=== PATIENT | male | born 1995 | race Caucasian/White ===

== ENCOUNTER 2016-12-26 16:52 | Emergency (ER) | payer SELFPAY ==
[2016-12-26 18:07] LABS: Hematocrit 47 % (42-52); Hemoglobin 15.5 g/dl (14.0-18.0); Mean Corpuscular HGB Conc 33 g/dl (31-36); Mean Corpuscular Hemoglobin 30 pg (27-31); Mean Corpuscular Volume 90 fL (80-94); Mean Platelet Volume 8 um3 (7.4-10.4); Red Blood Count 5.23 10^6/ul (4.0-5.4); Red Cell Distribution Width 14 % (10.5-15); White Blood Count 11.7 10^3/ul (3.5-10.8)
[2016-12-26 18:24] LABS: Urine Bacteria Absent (Absent); Urine Bilirubin Negative (Negative); Urine Glucose Negative (Negative); Urine Nitrite Negative (Negative)
[2016-12-26 18:26] LABS: ALT 17 U/L (7-52); AST 23 U/L (13-39); Albumin 4.3 g/dL (3.2-5.2); Alkaline Phosphatase 81 U/L (34-104); Blood Urea Nitrogen 13 mg/dL (6-24); CO2 Carbon Dioxide 25 mmol/L (22-32); EGFR African American 121.3 (>60); EGFR Non-African American 94.3 (>60); Globulin 2.8 g/dL (2-4); Glucose 85 mg/dL (70-100); Magnesium 2.6 mg/dL (1.9-2.7); Total Protein 7.1 g/dL (6.4-8.9)
[2016-12-26 18:38] LABS: Alcohol < 10 mg/dL (<10)
[2016-12-26 18:42] LABS: Benzodiazepine Urine Screen None Detected (None Detect)
[2016-12-26 19:05] VITALS: BP 119/67
[2016-12-26 22:21] LABS: Anion Gap 7 mmol/L (2-11); Chloride 105 mmol/L (101-111); Potassium 4.7 mmol/L (3.5-5.0); Sodium 137 mmol/L (133-145)
--- NOTE | 2016-12-27 13:34 | ED ---
IDereck Soohyun, scribed for Baudilio Rawls MD on 12/26/16 at 1747 . Neurological HPI - HPI Summary HPI Summary: This 21 y/o male presents to ED for reported three episodes of seizure today. Pt presents to ED alone without any family member, but reports that he has been informed by his family that he has had three seizures. PMHx does include known seizure. He also admits to having been noncompliant with his medication and has not taken his med since a month ago. Pt cannot recall what medication he is supposed to take. Seizure typically occurs once a month. Pt is from [place], [place]. Pt reports that his primary care involves Dr Reji Hope. - History of Current Complaint Chief Complaint: EDSeizure Stated Complaint: SEIZURES Time Seen by Provider: 12/26/16 17:33 Hx Obtained From: Patient Onset/Duration: Sudden Onset Timing: Intermittent Episodes Lasting: Pain Intensity: 8 Pain Scale Used: 0-10 Numeric Frequency: Episodes x___ - 3 Aggravating: Nothing Alleviating: Spontanious Resolution Associated Signs and Symptoms: Positive: Negative - Allergy/Home Medications Allergies/Adverse Reactions: Allergies Allergy/AdvReac Type Severity Reaction Status Date / Time Penicillins [PCN] Allergy Rash Verified 12/26/16 17:31 Home Medications: Home Medications carBAMazepine TAB(*) [Tegretol TAB(*)] 600 mg PO BID 12/26/16 [History Confirmed 12/26/16] PMH/Surg Hx/FS Hx/Imm Hx Neurological History: Reports: Hx Seizures Infectious Disease History: No Infectious Disease History: Denies: Traveled Outside the US in Last 30 Days - Family History Known Family History: Negative: Hypertension - Social History Lives: With Family Alcohol Use: Rare Hx Substance Use: No Substance Use Type: Reports: None Hx Tobacco Use: Yes Smoking Status (MU): Light Every Day Tobacco Smoker Review of Systems Negative: Fever Neurological: Other - 3x seizure All Other Systems Reviewed And Are Negative: Yes Physical Exam Triage Information Reviewed: Yes Vital Signs On Initial Exam: Initial Vitals Temp Pulse Resp BP Pulse Ox 99.4 F 101 22 121/88 98 12/26/16 17:07 12/26/16 17:07 12/26/16 17:07 12/26/16 17:07 12/26/16 17:07 Vital Signs Reviewed: Yes Appearance: Positive: Well-Appearing, No Pain Distress Skin: Positive: Warm, Skin Color Reflects Adequate Perfusion Head/Face: Positive: Normal Head/Face Inspection Eyes: Positive: Normal ENT: Positive: Normal ENT inspection Neck: Positive: Supple, Nontender Cardiovascular: Positive: RRR, Pulses are Symmetrical in both Upper and Lower Extremities Musculoskeletal: Positive: Normal Neurological: Positive: Normal Psychiatric: Positive: Affect/Mood Appropriate AVPU Assessment: Alert - [place] Coma Scale Coma Scale Total: 15 Diagnostics - Vital Signs Vital Signs Temp Pulse Resp BP Pulse Ox 12/26/16 17:32 88 97 12/26/16 17:30 102/52 12/26/16 17:29 99.4 F 93 15 102/52 97 12/26/16 17:07 99.4 F 101 22 121/88 98 - Laboratory Lab Results: Lab Results 12/26/16 12/26/16 12/26/16 Range/Units 17:50 17:50 17:50 WBC 11.7 H (3.5-10.8) 10^3/ul RBC 5.23 (4.0-5.4) 10^6/ul Hgb 15.5 (14.0-18.0) g/dl Hct 47 (42-52) % MCV 90 (80-94) fL MCH 30 (27-31) pg MCHC 33 (31-36) g/dl RDW 14 (10.5-15) % Plt Count 185 (150-450) 10^3/ul MPV 8 (7.4-10.4) um3 Neut % (Auto) 79.7 (38-83) % Lymph % (Auto) 9.9 L (25-47) % [place] % (Auto) 9.3 H (1-9) % Eos % (Auto) 0 (0-6) % Baso % (Auto) 1.1 (0-2) % Absolute Neuts (auto) 9.3 H (1.5-7.7) 10^3/ul Absolute Lymphs (auto) 1.2 (1.0-4.8) 10^3/ul Absolute Monos (auto) 1.1 H (0-0.8) 10^3/ul Absolute Eos (auto) 0 (0-0.6) 10^3/ul Absolute Basos (auto) 0.1 (0-0.2) 10^3/ul Absolute Nucleated RBC 0.01 10^3/ul Nucleated RBC % 0.1 INR (Anticoag Therapy) 0.90 (0.89-1.11) Sodium 137 (133-145) mmol/L Potassium 4.7 (3.5-5.0) mmol/L Chloride 105 (101-111) mmol/L Carbon Dioxide 25 (22-32) mmol/L Anion Gap 7 (2-11) mmol/L BUN 13 (6-24) mg/dL Creatinine 1.00 (0.67-1.17) mg/dL Est GFR ( Amer) 121.3 (>60) Est GFR (Non-Af Amer) 94.3 (>60) BUN/Creatinine Ratio 13.0 (8-20) Glucose 85 (70-100) mg/dL Lactic Acid (0.5-2.0) mmol/L Calcium 9.0 (8.6-10.3) mg/dL Magnesium 2.6 (1.9-2.7) mg/dL Total Bilirubin 0.50 (0.2-1.0) mg/dL AST 23 (13-39) U/L ALT 17 (7-52) U/L Alkaline Phosphatase 81 (34-104) U/L Total Protein 7.1 (6.4-8.9) g/dL Albumin 4.3 (3.2-5.2) g/dL Globulin 2.8 (2-4) g/dL Albumin/Globulin Ratio 1.5 (1-3) Urine Color Urine Appearance Urine pH (5-9) Ur Specific [place] (1.010-1.030) Urine Protein (Negative) Urine Ketones (Negative) Urine Blood (Negative) Urine Nitrate (Negative) Urine Bilirubin (Negative) Urine Urobilinogen (Negative) Ur Leukocyte Esterase (Negative) Urine WBC (Auto) (Absent) Urine RBC (Auto) (Absent) Uric Acid Crystals (Absent) Urine Bacteria (Absent) Urine Glucose (Negative) Urine Ascorbic Acid (Negative) Urine Opiates Screen (None Detect) Ur Barbiturates Screen (None Detect) Ur Phencyclidine Scrn (None Detect) Ur Amphetamines Screen (None Detect) U Benzodiazepines Scrn (None Detect) Urine Cocaine Screen (None Detect) U Cannabinoids Screen (None Detect) Serum Alcohol < 10 (<10) mg/dL 12/26/16 12/26/16 12/26/16 Range/Units 17:50 18:02 18:02 WBC (3.5-10.8) 10^3/ul RBC (4.0-5.4) 10^6/ul Hgb (14.0-18.0) g/dl Hct (42-52) % MCV (80-94) fL MCH (27-31) pg MCHC (31-36) g/dl RDW (10.5-15) % Plt Count (150-450) 10^3/ul MPV (7.4-10.4) um3 Neut % (Auto) (38-83) % Lymph % (Auto) (25-47) % [place] % (Auto) (1-9) % Eos % (Auto) (0-6) % Baso % (Auto) (0-2) % Absolute Neuts (auto) (1.5-7.7) 10^3/ul Absolute Lymphs (auto) (1.0-4.8) 10^3/ul Absolute Monos (auto) (0-0.8) 10^3/ul Absolute Eos (auto) (0-0.6) 10^3/ul Absolute Basos (auto) (0-0.2) 10^3/ul Absolute Nucleated RBC 10^3/ul Nucleated RBC % INR (Anticoag Therapy) (0.89-1.11) Sodium (133-145) mmol/L Potassium (3.5-5.0) mmol/L Chloride (101-111) mmol/L Carbon Dioxide (22-32) mmol/L Anion Gap (2-11) mmol/L BUN (6-24) mg/dL Creatinine (0.67-1.17) mg/dL Est GFR ( Amer) (>60) Est GFR (Non-Af Amer) (>60) BUN/Creatinine Ratio (8-20) Glucose (70-100) mg/dL Lactic Acid 2.1 H* (0.5-2.0) mmol/L Calcium (8.6-10.3) mg/dL Magnesium (1.9-2.7) mg/dL Total Bilirubin (0.2-1.0) mg/dL AST (13-39) U/L ALT (7-52) U/L Alkaline Phosphatase (34-104) U/L Total Protein (6.4-8.9) g/dL Albumin (3.2-5.2) g/dL Globulin (2-4) g/dL Albumin/Globulin Ratio (1-3) Urine Color Yellow Urine Appearance Cloudy Urine pH 5.0 (5-9) Ur Specific [place] 1.012 (1.010-1.030) Urine Protein Negative (Negative) Urine Ketones Negative (Negative) Urine Blood 1+ H (Negative) Urine Nitrate Negative (Negative) Urine Bilirubin Negative (Negative) Urine Urobilinogen Negative (Negative) Ur Leukocyte Esterase Negative (Negative) Urine WBC (Auto) Trace(0-5/hpf) (Absent) Urine RBC (Auto) Absent (Absent) Uric Acid Crystals Present H (Absent) Urine Bacteria Absent (Absent) Urine Glucose Negative (Negative) Urine Ascorbic Acid * H (Negative) Urine Opiates Screen None detected (None Detect) Ur Barbiturates Screen None detected (None Detect) Ur Phencyclidine Scrn None detected (None Detect) Ur Amphetamines Screen None detected (None Detect) U Benzodiazepines Scrn None detected (None Detect) Urine Cocaine Screen None detected (None Detect) U Cannabinoids Screen Presumptive positive H (None Detect) Serum Alcohol (<10) mg/dL Result Diagrams: 12/26/16 17:50 12/26/16 17:50 Lab Statement: Any lab studies that have been ordered have been reviewed, and results considered in the medical decision making process. Course/Dx - Course Course Of Treatment: Mr. Reyes reported several seizures today and admitted to being noncompliant with his medications. He was not post ictal when I saw him. He got tired of waiting for his lab results and walked out. - Diagnoses Provider Diagnoses: Seizure disorder Discharge - Discharge Plan Condition: Stable Disposition: HOME Referrals: Non Staff,Doctor [Primary Care Provider] - The documentation as recorded by the Dereck ramos Soohyun accurately reflects the service I personally performed and the decisions made by me, Baudilio Rawls MD.
== END 2016-12-26 20:43 | disposition home or self-care (01) ==
LOC: ED 16:52
DX: R56.9 Unspecified convulsions (principal); F17.210 Nicotine dependence, cigarettes, uncomplicated
CPT/HCPCS: 36415; 80053; 80307; 80320; 81003; 81015; 83605; 83735; 85025; 85610; 99282; G0480

== ENCOUNTER 2017-04-17 03:37 | Emergency (ER) | payer SELFPAY ==
[2017-04-17] MEDS ORDERED: Acetaminophen TAB* 325 MG PO ONE (04:39)
--- NOTE | 2017-04-17 04:41 | ED ---
Phani Santos Thomas, scribed for Jorge Boyce MD on 04/17/17 at 0433 . Throat Pain/Nasal Congestion - HPI Summary HPI Summary: The pt is a 21 y/o M presenting to the ED c/o swollen tongue s/p a seizure that occurred yesterday. The patient is not on any medication for his seizures. The seizure occurred when he came home from work. - History of Current Complaint Chief Complaint: EDGeneral Time Seen by Provider: 04/17/17 04:06 Hx Obtained From: Patient Onset/Duration: Lasting Days - 1, Still Present Severity: Moderate Associated Signs And Symptoms: Positive: Negative Cough: None Related History: Other (Noted In Comments) - Hx of seizures with a seizure yesterday - Allergies/Home Medications Allergies/Adverse Reactions: Allergies Allergy/AdvReac Type Severity Reaction Status Date / Time Penicillins [PCN] Allergy Rash Verified 12/26/16 17:31 PMH/Surg Hx/FS Hx/Imm Hx Previously Healthy: No Sensory History: Denies: Hx Legally Blind Neurological History: Reports: Hx Seizures Infectious Disease History: No Infectious Disease History: Denies: Traveled Outside the US in Last 30 Days - Family History Known Family History: Negative: Hypertension - Social History Alcohol Use: Rare Hx Substance Use: No Substance Use Type: Reports: None Hx Tobacco Use: Yes Smoking Status (MU): Light Every Day Tobacco Smoker Review of Systems Negative: Fever Positive: Other - Swollen tongue Neurological: Other - Seizure yesterday All Other Systems Reviewed And Are Negative: Yes Physical Exam - Summary Physical Exam Summary: VITAL SIGNS: Reviewed. GENERAL: Patient is a well-developed and nourished male who is lying comfortable in the stretcher. Patient is not in any acute respiratory distress. HEAD AND FACE: No signs of trauma. No ecchymosis, hematomas or skull depressions. No sinus tenderness. EYES: PERRLA, EOMI x 2, No injected conjunctiva, no nystagmus. EARS: Hearing grossly intact. Ear canals and tympanic membranes are within normal limits. MOUTH: Oropharynx within normal limits. There is a mild abrasion to the tongue margin. NECK: Supple, trachea is midline, no adenopathy, no JVD, no carotid bruit, no c- spine tenderness, neck with full ROM. CHEST: Symmetric, no tenderness at palpation LUNGS: Clear to auscultation bilaterally. No wheezing or crackles. CVS: Regular rate and rhythm, S1 and S2 present, no murmurs or gallops appreciated. ABDOMEN: Soft, non-tender. No signs of distention. No rebound no guarding, and no masses palpated. Bowel sounds are normal. EXTREMITIES: FROM in all major joints, no edema, no cyanosis or clubbing. NEURO: Alert and oriented x 3. No acute neurological deficits. Speech is normal and follows commands. SKIN: Dry and warm Triage Information Reviewed: Yes Vital Signs On Initial Exam: Initial Vitals Temp Pulse Resp BP Pulse Ox 98.3 F 107 16 144/88 98 04/17/17 03:47 04/17/17 03:47 04/17/17 03:47 04/17/17 03:47 04/17/17 03:47 Vital Signs Reviewed: Yes Diagnostics - Vital Signs Vital Signs Temp Pulse Resp BP Pulse Ox 04/17/17 03:49 110 96 04/17/17 03:48 144/88 04/17/17 03:47 98.3 F 107 16 144/88 98 - Laboratory Lab Statement: Any lab studies that have been ordered have been reviewed, and results considered in the medical decision making process. EENT Course/Dx - Course Assessment/Plan: The pt is a 21 y/o M presenting to the ED c/o swollen tongue s/ p a seizure that occurred yesterday. The patient is not on any medication for his seizures. The seizure occurred when he came home from work. I had a discussion with the patient about the importance of making an appointment with his doctor to manage his seizures. He will be discharged home with a prescription. - Diagnoses Provider Diagnoses: Abrasion of tongue Discharge - Discharge Plan Condition: Stable Disposition: HOME Patient Education Materials: Ecchymosis (ED) Referrals: Non Staff,Doctor [Primary Care Provider] - 1 Day The documentation as recorded by the Phani ramos Thomas accurately reflects the service I personally performed and the decisions made by me, Jorge Boyce MD.
[2017-04-17 05:23] VITALS: BP 104/81
== END 2017-04-17 05:30 | disposition home or self-care (01) ==
LOC: ED 03:37
DX: S00.512A Abrasion of oral cavity, initial encounter (principal); G40.909 Epilepsy, unspecified, not intractable, without status epilepticus; Z72.0 Tobacco use; X58.XXXA Exposure to other specified factors, initial encounter; Y92.009 Unspecified place in unspecified non-institutional (private) residence as the place of occurrence of the external cause
CPT/HCPCS: 99282; A9270-GY

== ENCOUNTER 2017-04-18 20:05 | Emergency (ER) | payer SELFPAY ==
[2017-04-18] MEDS ORDERED: NS 0.9% 1000 ML* 1,000 ML IV ONE (21:45)
[2017-04-18 22:26] LABS: Hematocrit 45 % (42-52); Hemoglobin 15.3 g/dl (14.0-18.0); Mean Corpuscular HGB Conc 34 g/dl (31-36); Mean Corpuscular Hemoglobin 30 pg (27-31); Mean Corpuscular Volume 87 fL (80-94); Mean Platelet Volume 8 um3 (7.4-10.4); Red Blood Count 5.17 10^6/ul (4.0-5.4); Red Cell Distribution Width 14 % (10.5-15); White Blood Count 9.5 10^3/ul (3.5-10.8)
[2017-04-18 22:34] LABS: Urine Bacteria Absent (Absent); Urine Bilirubin Negative (Negative); Urine Glucose Negative (Negative); Urine Nitrite Negative (Negative)
[2017-04-18 22:40] LABS: Mono Internal Control QC Line Present
[2017-04-18 22:44] LABS: Albumin 4.5 g/dL (3.2-5.2); BUN/Creatinine Ratio 11.7 (8-20); EGFR African American 130.3 (>60); EGFR Non-African American 101.3 (>60); Globulin 2.9 g/dL (2-4); Potassium 3.8 mmol/L (3.5-5.0); Total Bilirubin 0.4 mg/dL (0.2-1.0); Total Protein 7.4 g/dL (6.4-8.9)
[2017-04-18] MEDS ORDERED: OXcarbazepine TAB(*) 300 MG PO ONE (22:54)
--- NOTE | 2017-04-18 23:10 | ED ---
Throat Pain/Nasal Congestion - HPI Summary HPI Summary: 21M presents with lesion on left ear. He states he has pain doing down his neck. He also admits to generalized illness. He states feels fatigued. He admits to sinus congestion and dry cough. He states occasionally he has abdominal pain but not currently. He admits to occasionally nausea but denies any v/d/c. He denies any dysuria or flank pain. He denies any fever. He denies any headache or neck stiffness. He denies any injury to the neck. He does not have a primary. He has a history of seizures. - History of Current Complaint Chief Complaint: EDWeakness Time Seen by Provider: 04/18/17 21:26 - Allergies/Home Medications Allergies/Adverse Reactions: Allergies Allergy/AdvReac Type Severity Reaction Status Date / Time Penicillins [PCN] Allergy Rash Verified 12/26/16 17:31 PMH/Surg Hx/FS Hx/Imm Hx Endocrine/Hematology History: Denies: Hx Anticoagulant Therapy Sensory History: Denies: Hx Legally Blind Opthamlomology History: Denies: Hx Legally Blind Neurological History: Reports: Hx Seizures - Cancer History Cancer Type, Location and Year: H/O EPILEPSY Infectious Disease History: No Infectious Disease History: Denies: Traveled Outside the US in Last 30 Days - Family History Known Family History: Negative: Hypertension - Social History Alcohol Use: Occasionally Hx Substance Use: No Substance Use Type: Reports: Marijuana Hx Tobacco Use: Yes Smoking Status (MU): Light Every Day Tobacco Smoker Review of Systems Negative: Fever Positive: Ear Ache Negative: Chest Pain Positive: Cough. Negative: Shortness Of Breath All Other Systems Reviewed And Are Negative: Yes Physical Exam Triage Information Reviewed: Yes Vital Signs On Initial Exam: Initial Vitals Temp Pulse Resp BP Pulse Ox 98.7 F 77 16 149/90 99 04/18/17 20:10 04/18/17 20:10 04/18/17 20:10 04/18/17 20:10 04/18/17 20:10 Vital Signs Reviewed: Yes Appearance: Positive: Well-Appearing Skin: Positive: Warm, Dry Head/Face: Positive: Normal Head/Face Inspection Eyes: Positive: Normal, EOMI, KEVAN, Conjunctiva Clear ENT: Positive: Pharynx normal, TMs normal, Other - has some redness and scaps to left eyelobe Respiratory/Lung Sounds: Positive: Clear to Auscultation, Breath Sounds Present Cardiovascular: Positive: Normal, RRR Abdomen Description: Positive: Nontender, Soft Bowel Sounds: Positive: Present Musculoskeletal: Positive: Normal Neurological: Positive: Sensory/Motor Intact, Alert, Oriented to Person Place, Time, CN Intact II-III Psychiatric: Positive: Normal - [place] Coma Scale Coma Scale Total: 15 Diagnostics - Vital Signs Vital Signs Temp Pulse Resp BP Pulse Ox 04/18/17 20:10 98.7 F 77 16 149/90 99 - Laboratory Lab Results: Lab Results 04/18/17 04/18/17 04/18/17 Range/Units 22:11 22:11 22:11 WBC 9.5 (3.5-10.8) 10^3/ul RBC 5.17 (4.0-5.4) 10^6/ul Hgb 15.3 (14.0-18.0) g/dl Hct 45 (42-52) % MCV 87 (80-94) fL MCH 30 (27-31) pg MCHC 34 (31-36) g/dl RDW 14 (10.5-15) % Plt Count 202 (150-450) 10^3/ul MPV 8 (7.4-10.4) um3 Neut % (Auto) 58.8 (38-83) % Lymph % (Auto) 32.6 (25-47) % [place] % (Auto) 7.5 (1-9) % Eos % (Auto) 0.6 (0-6) % Baso % (Auto) 0.5 (0-2) % Absolute Neuts (auto) 5.6 (1.5-7.7) 10^3/ul Absolute Lymphs (auto) 3.1 (1.0-4.8) 10^3/ul Absolute Monos (auto) 0.7 (0-0.8) 10^3/ul Absolute Eos (auto) 0.1 (0-0.6) 10^3/ul Absolute Basos (auto) 0.1 (0-0.2) 10^3/ul Absolute Nucleated RBC 0 10^3/ul Nucleated RBC % 0 Sodium 137 (133-145) mmol/L Potassium 3.8 (3.5-5.0) mmol/L Chloride 103 (101-111) mmol/L Carbon Dioxide 27 (22-32) mmol/L Anion Gap 7 (2-11) mmol/L BUN 11 (6-24) mg/dL Creatinine 0.94 (0.67-1.17) mg/dL Est GFR ( Amer) 130.3 (>60) Est GFR (Non-Af Amer) 101.3 (>60) BUN/Creatinine Ratio 11.7 (8-20) Glucose 105 H (70-100) mg/dL Calcium 10.0 (8.6-10.3) mg/dL Magnesium 2.0 (1.9-2.7) mg/dL Total Bilirubin 0.40 (0.2-1.0) mg/dL AST 30 (13-39) U/L ALT 24 (7-52) U/L Alkaline Phosphatase 77 (34-104) U/L Total Protein 7.4 (6.4-8.9) g/dL Albumin 4.5 (3.2-5.2) g/dL Globulin 2.9 (2-4) g/dL Albumin/Globulin Ratio 1.6 (1-3) Urine Color Yellow Urine Appearance Clear Urine pH 6.0 (5-9) Ur Specific [place] 1.020 (1.010-1.030) Urine Protein Negative (Negative) Urine Ketones Trace H (Negative) Urine Blood 1+ H (Negative) Urine Nitrate Negative (Negative) Urine Bilirubin Negative (Negative) Urine Urobilinogen Negative (Negative) Ur Leukocyte Esterase Negative (Negative) Urine WBC (Auto) Absent (Absent) Urine RBC (Auto) 3+(>10/hpf) H (Absent) Urine Bacteria Absent (Absent) Urine Glucose Negative (Negative) Monoscreen Negative (Negative) Result Diagrams: 04/18/17 22:11 04/18/17 22:11 Lab Statement: Any lab studies that have been ordered have been reviewed, and results considered in the medical decision making process. - CT temporal CT Interpretation: Positive (See Comments) - 1. mastoid processses appear unremarkable 2. mild right ethmoid air cell sinusitis 3. large chronic left tempral lobe infarcation CT Interpretation Completed By: Radiologist EENT Course/Dx - Course Course Of Treatment: 21M presents with lesion on left ear. He states he has pain doing down his neck. He also admits to generalized illness. He states feels fatigued. He admits to sinus congestion and dry cough. He states occasionally he has abdominal pain but not currently. He admits to occasionally nausea but denies any v/d/c. He denies any dysuria or flank pain. He denies any fever. He denies any headache or neck stiffness. He denies any injury to the neck. He does not have a primary. He has a history of seizures. on exam has redness of left eye lobe with a scab present. labs normal. could be contact dermatitis vs early cellulitis. do not feel any abscess at this point. will treat with oral and topical antibiotic. CT mastoid no masotiditis, old infaract seeing. patient no neuro deficits on exam and says has history of swelling on left side of brain. discussed CT with dr lagunas who states patient can just follow up outpatient. patient understand and agrees with plan. - Differential Diagnoses Differential Diagnoses: Mastoiditis, Other - contact dermatitis, abscess, cellulitis - Diagnoses Provider Diagnoses: Cellulitis of left earlobe Discharge - Discharge Plan Condition: Good Disposition: HOME Prescriptions: DOXYcycline CAP(*) [DOXYcycline 100MG CAP(*)] 100 mg PO BID #19 cap Patient Education Materials: Cellulitis (ED) Referrals: [facility] [Outside] Rupali Little MD [Medical Doctor] - Non Staff,Doctor [Primary Care Provider] - Additional Instructions: Take doxycycline twice a day for 10 days, first dose given in ED, take with food Place topical antibiotic on area twice a day Establish care with primary care physician Follow up with neurology about seizures and brain infarct Return to ED if develop fever, area of redness spreads, or any new or worsening symptoms
[2017-04-19] MEDS ORDERED: Mupirocin 2% OINT* TUBE TOPICAL ONE (00:37)
[2017-04-19] MEDS ORDERED: DOXYcycline CAP(*) 100 MG PO ONE (00:37)
[2017-04-19 01:00] VITALS: BP 105/72
--- NOTE | 2017-04-19 08:36 | RAD ---
Indication: Mastoid pain. CT of the temporal bones was obtained in the axial plane. Coronal and sagittal reconstructed images were obtained. Mastoid air cells are well aerated. No evidence of abnormal fluid is noted to suggest mastoiditis sinusitis. The middle ear cavities are unremarkable with no evidence of abnormal fluid. Mucosal thickening and the pterygoid plates are unremarkable. No fracture is noted. There is opacification of the right-sided ethmoid air cell. Mucosal thickening in the right maxillary sinus. The brain images demonstrate prior left temporal lobe infarct with encephalomalacia. IMPRESSION: Mastoid air cells and middle ear cavities are unremarkable. Right ethmoid sinusitis and maxillary sinusitis is noted. Old left temporal lobe infarct.
== END 2017-04-19 01:28 | disposition home or self-care (01) ==
LOC: ED 20:05
DX: H60.12 Cellulitis of left external ear (principal); Z72.0 Tobacco use; G40.909 Epilepsy, unspecified, not intractable, without status epilepticus; Z88.0 Allergy status to penicillin
CPT/HCPCS: 36415; 70480; 80053; 81003; 81015; 83735; 85025; 86308; 86703; 96360; 99283; A9270-GY

== ENCOUNTER → 2017-04-21 18:53 | Emergency (ER) | payer SELFPAY ==
[~2017-04-21 18:53] MED LIST: NS 0.9% 1000 ML* 1,000 ML IV ONE; OXcarbazepine TAB(*) 300 MG PO ONE
--- NOTE | 2017-04-21 19:55 | RAD ---
INDICATION: Chest pain COMPARISON: None TECHNIQUE: PA and lateral views of the chest were obtained. FINDINGS: The heart and mediastinum are normal in size and contour. The lungs are grossly clear. There is no evidence of large pleural effusion. Visualized bones are normal for the patient's age. There is no radiographic evidence of free air beneath the diaphragm IMPRESSION: No radiographic evidence of acute cardiopulmonary disease.
--- NOTE | 2017-04-21 20:01 | ED ---
HPI Chest Pain - HPI Summary HPI Summary: 21M presents with chest pain today. He states he drank some ETOH and did some marijuana. He states that the chest pain came out of nowhere and has been persistent throughout the day. He describes it as pressure. It does not radiate anywhere. He states that has never had this before. He denies any fever. He denies any SOB. He denies any abdominal pain, nausea or vomiting. He states has mild headache for past month that is unchanged. He denies any cough or recent illness. He has PMH of seizures and is not taking his medication for it. He does not have a primary. He states has not slept for past three days. He states is very tired. He denies any seizure or recent injury. - History of Current Complaint Chief Complaint: EDSubstanceAbuse Time Seen by Provider: 04/21/17 19:07 Pain Intensity: 5 - Allergy/Home Medications Allergies/Adverse Reactions: Allergies Allergy/AdvReac Type Severity Reaction Status Date / Time Penicillins [PCN] Allergy Rash Verified 04/21/17 19:01 PMH/Surg Hx/FS Hx/Imm Hx Endocrine/Hematology History: Denies: Hx Anticoagulant Therapy Sensory History: Denies: Hx Legally Blind Opthamlomology History: Denies: Hx Legally Blind Neurological History: Reports: Hx Seizures - Cancer History Cancer Type, Location and Year: H/O EPILEPSY Infectious Disease History: No Infectious Disease History: Denies: Traveled Outside the [place] in Last 30 Days - Family History Known Family History: Negative: Hypertension - Social History Alcohol Use: Occasionally Hx Substance Use: No Substance Use Type: Reports: Marijuana Hx Tobacco Use: Yes Smoking Status (MU): Light Every Day Tobacco Smoker Review of Systems Negative: Fever Positive: Chest Pain Negative: Shortness Of Breath, Cough Negative: Abdominal Pain All Other Systems Reviewed And Are Negative: Yes Physical Exam Triage Information Reviewed: Yes Vital Signs On Initial Exam: Initial Vitals Temp Pulse Resp BP Pulse Ox 98.6 F 117 15 159/78 100 04/21/17 18:55 04/21/17 18:55 04/21/17 18:55 04/21/17 18:55 04/21/17 18:55 Vital Signs Reviewed: Yes Appearance: Positive: Well-Appearing Skin: Positive: Warm, Dry Head/Face: Positive: Normal Head/Face Inspection Eyes: Positive: Normal, EOMI, KEVAN, Conjunctiva Clear ENT: Positive: Normal ENT inspection, Pharynx normal, TMs normal Respiratory/Lung Sounds: Positive: Clear to Auscultation, Breath Sounds Present , Other - nontender chest wall Cardiovascular: Positive: Normal, RRR Abdomen Description: Positive: Nontender, Soft Bowel Sounds: Positive: Present - Mac Coma Scale Coma Scale Total: 15 Diagnostics - Vital Signs Vital Signs Temp Pulse Resp BP Pulse Ox 04/21/17 19:19 100 04/21/17 19:00 120 27 136/72 100 04/21/17 18:58 159/78 04/21/17 18:55 98.6 F 117 15 159/78 100 - Laboratory Result Diagrams: 04/21/17 20:09 04/21/17 20:09 Lab Statement: Any lab studies that have been ordered have been reviewed, and results considered in the medical decision making process. - Radiology chest Xray Interpretation: No Acute Changes Radiology Interpretation Completed By: Radiologist - EKG No standard instances Cardiac Rate: NL EKG Rhythm: Sinus Rhythm EKG Interpretation: normal sinus rhythmn, slight ST elevation in v2,v3 but likely early repol Re-Evaluation - Re-Evaluation First Eval Re-Evaluation Time: 22:24 Change: Worse Comment: is drowsy but arousable Chest Pain Course/Dx - Course Course Of Treatment: 21M presents with chest pain today. He states he drank some ETOH and did some marijuana. He states that the chest pain came out of nowhere and has been persistent throughout the day. He describes it as pressure. It does not radiate anywhere. He states that has never had this before. He denies any fever. He denies any SOB. He denies any abdominal pain , nausea or vomiting. He states has mild headache for past month that is unchanged. He denies any cough or recent illness. He has PMH of seizures and is not taking his medication for it. He does not have a primary. He states has not slept for past three days. He states is very tired. He denies any seizure or recent injury. on exam lungs CTA. heart RRR. during course in ED patient became more and more legathric. discussed case with dr lagunas got CT nothing new seen. lactic and crp normal. dr lagunas evaulated for menigineal signs and has no signs. dr lagunas says that is unlikely having MA. does not know family history. will have follow up with primary. patient understand and agrees with plan. - Chest Pain Differential Diagnosis/HQI/PQRI: Angina, Chest Wall, Lower Respiratory Infection , Pulmonary Embolism - Diagnoses Provider Diagnoses: Substance abuse, Chest pain Discharge - Discharge Plan Condition: Good Disposition: HOME Patient Education Materials: Cannabis Abuse (ED) Referrals: [facility] [Outside] Harpal Chavez MD [Medical Doctor] - Additional Instructions: You need to establish care with a primary You also need to follow up with neurology about seizure Take seizure medication as prescribed Return to ED if develop any new or worsening symptoms
[2017-04-21 20:15] LABS: Hematocrit 42 % (42-52); Hemoglobin 14.1 g/dl (14.0-18.0); Mean Corpuscular HGB Conc 34 g/dl (31-36); Mean Corpuscular Hemoglobin 29 pg (27-31); Mean Corpuscular Volume 87 fL (80-94); Mean Platelet Volume 8 um3 (7.4-10.4); Red Blood Count 4.82 10^6/ul (4.0-5.4); Red Cell Distribution Width 14 % (10.5-15); White Blood Count 14.8 10^3/ul (3.5-10.8)
[2017-04-21 20:29] LABS: Albumin 4.2 g/dL (3.2-5.2); Anion Gap 8 mmol/L (2-11); BUN/Creatinine Ratio 16.7 (8-20); Blood Urea Nitrogen 16 mg/dL (6-24); CO2 Carbon Dioxide 23 mmol/L (22-32); Calcium 9.5 mg/dL (8.6-10.3); Chloride 104 mmol/L (101-111); EGFR African American 127.2 (>60); EGFR Non-African American 98.9 (>60); Glucose 107 mg/dL (70-100); Potassium 3.4 mmol/L (3.5-5.0); Sodium 135 mmol/L (133-145); Total Protein 6.8 g/dL (6.4-8.9)
[2017-04-21 20:30] LABS: ALT 16 U/L (7-52); AST 13 U/L (13-39); Alkaline Phosphatase 74 U/L (34-104); Globulin 2.6 g/dL (2-4)
[2017-04-21 20:31] LABS: Troponin I 0.03 ng/mL (<0.04)
[2017-04-21 20:53] LABS: Benzodiazepine Urine Screen None Detected (None Detect)
[2017-04-21 20:54] LABS: Alcohol < 10 mg/dL (<10)
[2017-04-21 23:00] LABS: C Reactive Protein < 1.00 mg/L (< 5.00)
[2017-04-21 23:46] VITALS: BP 114/58
--- NOTE | 2017-04-22 07:06 | RAD ---
INDICATION: Altered mental status. COMPARISON: There are no prior studies available for comparison. TECHNIQUE: Contiguous axial sections of the brain were obtained from the skull base to the vertex without contrast. FINDINGS: There is a focal moderate to large area of CSF density present in the left temporal and parietal lobes with negative mass effect consistent with encephalomalacia possibly from a prior infarct. No other focal abnormality or mass effect are seen. There is no evidence for hemorrhage. No significant focal osseous abnormality is seen. The visualized portion of the paranasal sinuses and mastoid air cells appear clear. IMPRESSION: 1. NO EVIDENCE FOR ACUTE INTRACRANIAL ABNORMALITY. 2. MODERATE TO LARGE AREA OF ENCEPHALOMALACIA IN THE LEFT TEMPORAL AND PARIETAL LOBES SUGGESTIVE OF AN OF AN OLD INFARCT. RECOMMEND CLINICAL CORRELATION.
== END | disposition home or self-care (01) ==
LOC: ED 18:53
DX: F19.10 Other psychoactive substance abuse, uncomplicated (principal); R07.9 Chest pain, unspecified
CPT/HCPCS: 36415; 70450; 71020; 80053; 80307; 80320; 83605; 84484; 85025; 85379; 86140; 93005; 99283; A9270-GY; G0480

== ENCOUNTER 2017-06-22 19:13 | Emergency (ER) | payer SELFPAY ==
[2017-06-22] MEDS ORDERED: NS 0.9% 1000 ML* 1,000 ML IV ONE (20:30)
--- NOTE | 2017-06-22 20:59 | RAD ---
Indication: Chest pain. 2 views of the chest demonstrates no mediastinal shift. Heart is of normal size and configuration. Lung rosales are clear. When compared to previous exam of April 21, 2017 no significant change is noted. IMPRESSION: No active cardiopulmonary disease is noted.
[2017-06-22] MEDS ORDERED: LORazepam INJ* 2 MG/ML 1 ML VIAL IV PUSH ONE (21:04)
[2017-06-22 21:09] LABS: ABS Basophils 0.1 10^3/ul (0-0.2); ABS Eosinophils 0 10^3/ul (0-0.6); ABS Lymphocytes 1.4 10^3/ul (1.0-4.8); ABS Monocytes 0.7 10^3/ul (0-0.8); ABS Neutrophils 9.8 10^3/ul (1.5-7.7); ABS Nucleated RBC 0 10^3/ul; Eosinophil % 0.1 % (0-6); Hematocrit 42 % (42-52); Hemoglobin 14.1 g/dl (14.0-18.0); Lymphocyte % 11.6 % (25-47); Mean Corpuscular HGB Conc 34 g/dl (31-36); Mean Corpuscular Hemoglobin 30 pg (27-31); Mean Corpuscular Volume 88 fL (80-94); Mean Platelet Volume 8 um3 (7.4-10.4); Nucleated Red Blood Cells % 0; Platelet Count 187 10^3/ul (150-450); Red Blood Count 4.75 10^6/ul (4.0-5.4); Red Cell Distribution Width 14 % (10.5-15)
[2017-06-22 21:30] LABS: EGFR Non-African American 102.9 (>60)
[2017-06-22 23:10] VITALS: BP 113/68
--- NOTE | 2017-06-22 23:21 | ED ---
HPI Chest Pain - HPI Summary HPI Summary: Patient presents to the ED with chief complaint of midsternal chest pain after smoking marijuana and cigarettes this date. He states he first noticed the chest pain after he took a large hit from a bong and now is feeling they have pressure externally. He endorses shortness of breath. Denies any and all other symptoms including fevers, sweats, chills or recent illness. He states he smokes marijuana and cigarettes every day and has had this issue twice in the past and was seen in the ED for most recently 2 months ago with no findings. Denies any cardiac history. Patient is a poor historian and unable to tell me personal or family history. Alcohol use is intermittently and rarely. - History of Current Complaint Chief Complaint: EDChestPainROMI Time Seen by Provider: 06/22/17 19:35 Hx Obtained From: Patient Onset/Duration: Started Minutes Ago Timing: Constant Initial Severity: Mild Current Severity: Mild Pain Intensity: 0 Pain Scale Used: 0-10 Numeric Chest Pain Location: Mid Sternal Chest Pain Radiates: No Character: Burning Aggravating Factor(s): Nothing Alleviating Factor(s): Nothing Associated Signs and Symptoms: Positive: Chest Pain - Risk Factors Pulmonary Embolism Risk Factors: Negative TAD Risk Factors: Negative AMI/ACS Risk Factors: Sedentary Lifestyle - Allergy/Home Medications Allergies/Adverse Reactions: Allergies Allergy/AdvReac Type Severity Reaction Status Date / Time Penicillins [PCN] Allergy Rash Verified 04/21/17 19:01 PMH/Surg Hx/FS Hx/Imm Hx Previously Healthy: Yes Endocrine/Hematology History: Denies: Hx Anticoagulant Therapy Sensory History: Denies: Hx Legally Blind Opthamlomology History: Denies: Hx Legally Blind Neurological History: Reports: Hx Seizures - Cancer History Cancer Type, Location and Year: H/O EPILEPSY - Immunization History Date of Influenza Vaccine: Fall 2016 Hx Pertussis Vaccination: No Immunizations Up to Date: Unable to Obtain/Confirm Infectious Disease History: No Infectious Disease History: Denies: Traveled Outside the US in Last 30 Days - Family History Known Family History: Negative: Hypertension - Social History Occupation: Unemployed Lives: With Family Alcohol Use: Occasionally Hx Substance Use: No Substance Use Type: Reports: Marijuana Hx Tobacco Use: Yes Smoking Status (MU): Light Every Day Tobacco Smoker Review of Systems Constitutional: Negative Negative: Fever, Chills, Fatigue Eyes: Negative Positive: Chest Pain Respiratory: Negative Genitourinary: Negative Positive: no symptoms reported, see HPI Musculoskeletal: Negative Skin: Negative Neurological: Negative All Other Systems Reviewed And Are Negative: Yes Physical Exam Triage Information Reviewed: Yes Vital Signs On Initial Exam: Initial Vitals Temp Pulse Resp BP Pulse Ox 99.2 F 123 20 154/84 97 06/22/17 19:15 06/22/17 19:15 06/22/17 19:15 06/22/17 19:15 06/22/17 19:15 Vital Signs Reviewed: Yes Appearance: Positive: Well-Appearing, Well-Nourished Skin: Positive: Warm, Skin Color Reflects Adequate Perfusion Head/Face: Positive: Normal Head/Face Inspection Eyes: Positive: EOMI, KEVAN, Conjunctiva Clear Respiratory/Lung Sounds: Positive: Clear to Auscultation, Breath Sounds Present Cardiovascular: Positive: RRR, Pulses are Symmetrical in both Upper and Lower Extremities Musculoskeletal: Positive: Normal, Strength/ROM Intact Psychiatric: Positive: Normal, Affect/Mood Appropriate Diagnostics - Vital Signs Vital Signs Temp Pulse Resp BP Pulse Ox 06/22/17 23:02 100.1 F 86 20 113/68 95 06/22/17 23:00 76 23 117/54 93 06/22/17 22:30 80 22 111/50 93 06/22/17 22:00 81 20 114/78 95 06/22/17 21:58 20 113/71 06/22/17 21:00 91 20 97 06/22/17 20:30 111 21 110/81 97 06/22/17 20:00 118 26 134/82 94 06/22/17 19:32 133 19 97 06/22/17 19:31 158/75 06/22/17 19:15 99.2 F 123 20 154/84 97 - Laboratory Lab Results: Lab Results 06/22/17 06/22/17 Range/Units 20:55 20:55 WBC 12.0 H (3.5-10.8) 10^3/ul RBC 4.75 (4.0-5.4) 10^6/ul Hgb 14.1 (14.0-18.0) g/dl Hct 42 (42-52) % MCV 88 (80-94) fL MCH 30 (27-31) pg MCHC 34 (31-36) g/dl RDW 14 (10.5-15) % Plt Count 187 (150-450) 10^3/ul MPV 8 (7.4-10.4) um3 Neut % (Auto) 82.1 (38-83) % Lymph % (Auto) 11.6 L (25-47) % [place] % (Auto) 5.7 (1-9) % Eos % (Auto) 0.1 (0-6) % Baso % (Auto) 0.5 (0-2) % Absolute Neuts (auto) 9.8 H (1.5-7.7) 10^3/ul Absolute Lymphs (auto) 1.4 (1.0-4.8) 10^3/ul Absolute Monos (auto) 0.7 (0-0.8) 10^3/ul Absolute Eos (auto) 0 (0-0.6) 10^3/ul Absolute Basos (auto) 0.1 (0-0.2) 10^3/ul Absolute Nucleated RBC 0 10^3/ul Nucleated RBC % 0 Sodium 137 (133-145) mmol/L Potassium 3.8 (3.5-5.0) mmol/L Chloride 106 (101-111) mmol/L Carbon Dioxide 25 (22-32) mmol/L Anion Gap 6 (2-11) mmol/L BUN 17 (6-24) mg/dL Creatinine 0.92 (0.67-1.17) mg/dL Est GFR ( Amer) 132.3 (>60) Est GFR (Non-Af Amer) 102.9 (>60) BUN/Creatinine Ratio 18.5 (8-20) Glucose 107 H (70-100) mg/dL Calcium 8.9 (8.6-10.3) mg/dL Total Bilirubin 0.40 (0.2-1.0) mg/dL AST 26 (13-39) U/L ALT 26 (7-52) U/L Alkaline Phosphatase 65 (34-104) U/L Troponin I 0.03 (<0.04) ng/mL Total Protein 6.5 (6.4-8.9) g/dL Albumin 4.1 (3.2-5.2) g/dL Globulin 2.4 (2-4) g/dL Albumin/Globulin Ratio 1.7 (1-3) Result Diagrams: 06/22/17 20:55 06/22/17 20:55 Lab Statement: Any lab studies that have been ordered have been reviewed, and results considered in the medical decision making process. Chest Pain Course/Dx - Course Course Of Treatment: History During the course of treatment CBC and troponin obtained. CBC slightly elevated at 11.0 and troponin is negative. Chest x-ray shows no active cardiopulmonary disease. This was also read by myself and I agree with results. Temp noted to be 100.1 but rechecked at 99.5. EKG shows normal sinus rhythm and compared to previous EKG shows no changes. He was not given any medication and chest pain spontaneously resolved after 50 minutes after arrival into the ED. He voices no concerns at discharge and understands return precautions. Vital signs are stable. - Diagnoses Provider Diagnoses: Chest wall pain Discharge - Discharge Plan Condition: Stable Disposition: HOME Patient Education Materials: Chest Wall Pain (ED) Referrals: No Primary Care Phys,NOPCP [Primary Care Provider] -
== END 2017-06-22 23:10 | disposition home or self-care (01) ==
LOC: ED 19:13
DX: R07.89 Other chest pain (principal); F17.210 Nicotine dependence, cigarettes, uncomplicated
CPT/HCPCS: 36415; 71046; 80053; 84484; 85025; 86703; 93005; 96361; 96374; 99283

== ENCOUNTER 2017-07-24 16:33 | Emergency (ER) | payer SELFPAY ==
[2017-07-24 17:33] LABS: ABS Basophils 0 10^3/ul (0-0.2); ABS Eosinophils 0 10^3/ul (0-0.6); ABS Lymphocytes 1.2 10^3/ul (1.0-4.8); ABS Monocytes 0.6 10^3/ul (0-0.8); ABS Neutrophils 5.8 10^3/ul (1.5-7.7); ABS Nucleated RBC 0 10^3/ul; Eosinophil % 0.2 % (0-6); Hematocrit 43 % (42-52); Hemoglobin 14.6 g/dl (14.0-18.0); Lymphocyte % 15.9 % (25-47); Mean Corpuscular HGB Conc 34 g/dl (31-36); Mean Corpuscular Hemoglobin 30 pg (27-31); Mean Corpuscular Volume 88 fL (80-94); Mean Platelet Volume 8 um3 (7.4-10.4); Nucleated Red Blood Cells % 0; Platelet Count 185 10^3/ul (150-450); Red Blood Count 4.84 10^6/ul (4.0-5.4); Red Cell Distribution Width 13 % (10.5-15); White Blood Count 7.6 10^3/ul (3.5-10.8)
--- NOTE | 2017-07-24 17:34 | ED ---
Seizure - HPI Summary HPI Summary: Patient is a 22-year-old male with a history of grand mal seizures who presents via [facility] after being found on the sidewalk up near [facility] approximately 20 minutes prior to arrival. He states he has not been taking his medication for about 2 days, and has a history of noncompliance with his medicine. He is currently on Trileptal 6 and a milligrams twice a day. He was previously on oxcarbazepine. He does not have an neurologist and is not from this town. Although, he is living here currently. He denies any drug or alcohol use on this date. He denies any chest pain, shortness of breath. He states he was slightly fatigued for 30 minutes after the seizure, but denies any fatigue at this time. He does recall the events leading up to the seizure, but does not remember the seizure itself and does not know the amount of time he was down. He denies any headache, bruising and does not think he hit his head. Denies any confusion, memory loss. - History Of Current Complaint Chief Complaint: EDSeizure Time Seen by Provider: 07/24/17 16:45 Hx Obtained From: Patient Onset/Duration: Sudden Onset Severity Of Seizure: Status Epilepticus Location Of Seizure: All Extremities Character: Generalized Clonic-Tonic Aggravating Factor(s): Nothing Alleviating Factor(s): Spontaneous Resolution Associated Signs And Symptoms: Negative Related History: Medication Non-Compliant - Risk Factors SAH Risk Factors: Negative Meningitis Risk Factors: Negative SDH Risk Factor: Male, Seizures - Allergies/Home Medications Allergies/Adverse Reactions: Allergies Allergy/AdvReac Type Severity Reaction Status Date / Time MS Penicillins [PCN] Allergy Rash Verified 04/21/17 19:01 PMH/Surg Hx/FS Hx/Imm Hx Previously Healthy: Yes Endocrine/Hematology History: Denies: Hx Anticoagulant Therapy Sensory History: Denies: Hx Legally Blind Opthamlomology History: Denies: Hx Legally Blind Neurological History: Reports: Hx Seizures - Cancer History Cancer Type, Location and Year: H/O EPILEPSY - Immunization History Date of Influenza Vaccine: Fall 2016 Hx Pertussis Vaccination: No Immunizations Up to Date: Unable to Obtain/Confirm Infectious Disease History: No Infectious Disease History: Denies: Traveled Outside the [place] in Last 30 Days - Family History Known Family History: Negative: Hypertension - Social History Occupation: Unemployed Lives: Alone Alcohol Use: Occasionally Hx Substance Use: No Substance Use Type: Reports: Marijuana Hx Tobacco Use: Yes Smoking Status (MU): Light Every Day Tobacco Smoker Review of Systems Constitutional: Negative Negative: Fever, Chills, Fatigue, Skin Diaphoresis Eyes: Negative Cardiovascular: Negative Respiratory: Negative Negative: Abdominal Pain, Vomiting, Diarrhea, Nausea Positive: no symptoms reported, see HPI Musculoskeletal: Negative Skin: Negative Neurological: Negative Psychological: Normal All Other Systems Reviewed And Are Negative: Yes Physical Exam Triage Information Reviewed: Yes Vital Signs On Initial Exam: Initial Vitals Temp Pulse Resp BP Pulse Ox 99.1 F 93 19 143/74 99 07/24/17 16:40 07/24/17 16:40 07/24/17 16:40 07/24/17 16:40 07/24/17 16:40 Vital Signs Reviewed: Yes Appearance: Positive: Well-Appearing, Well-Nourished Skin: Positive: Dry - Mucous membranes Head/Face: Positive: Normal Head/Face Inspection Eyes: Positive: EOMI, KEVAN, Conjunctiva Clear Neck: Positive: Supple, Nontender, No Lymphadenopathy Respiratory/Lung Sounds: Positive: Clear to Auscultation, Breath Sounds Present Cardiovascular: Positive: RRR, Pulses are Symmetrical in both Upper and Lower Extremities Musculoskeletal: Positive: Normal, Strength/ROM Intact Neurological: Positive: Speech Normal Psychiatric: Positive: Normal, Affect/Mood Appropriate Diagnostics - Vital Signs Vital Signs Temp Pulse Resp BP Pulse Ox 07/24/17 16:40 99.1 F 93 19 143/74 99 - Laboratory Result Diagrams: 07/24/17 17:20 07/24/17 17:20 Lab Statement: Any lab studies that have been ordered have been reviewed, and results considered in the medical decision making process. Course/Dx - Course Course Of Treatment: During the course of treatment, the patient is evaluated for seizure-like activity. He has not been taking his Trileptal for at least 2 days and states he has a history of noncompliance. He has been seen for similar episodes of being found down for an extended period of time, but states he usually is able to wake up and is usually not seen in the ED. However, he was found by [facility] ambulance and was taken here. He denies feeling ill, has not been ill recently, denies any chest pain or shortness of breath. He feels okay at this point. He is not postictal during physical exam and there are no signs of trauma. He does not currently have a neurologist and I've discussed referring him to one of [facility] neurologist to which he accepts. Discussed continuing Trileptal. Labs obtained are all all within normal range except for elevated lactic acid at 6.1. I immediately ordered 2 L normal saline. At this time, while provider was not in the room, patient eloped and did not sign AMA paperwork. I decided not to complete a CT scan as he is not having any concussive or trauma symptoms such as bruising, hemotympanum, raccoon sign, Posey sign, memory loss, confusion, headache or cephalohematoma. Patient left AMA. - Diagnoses Provider Diagnoses: Seizure Discharge - Discharge Plan Condition: Stable Disposition: AGAINST MEDICAL ADVICE Patient Education Materials: Epilepsy (ED) Referrals: Rupali Little MD [Medical Doctor] - No Primary Care Phys,NOPCP [Primary Care Provider] -
[2017-07-24 17:40] LABS: INR 0.98 (0.77-1.02)
[2017-07-24 17:45] LABS: EGFR Non-African American 83.7 (>60)
[2017-07-24] MEDS ORDERED: NS 0.9% 1000 ML* 2,000 ML IV ONE (17:51)
[2017-07-24 18:46] VITALS: BP 106/66
== END 2017-07-24 18:20 | disposition left against medical advice (07) ==
LOC: ED 16:33
DX: G40.909 Epilepsy, unspecified, not intractable, without status epilepticus (principal); F17.200 Nicotine dependence, unspecified, uncomplicated; Z53.21 Procedure and treatment not carried out due to patient leaving prior to being seen by health care provider; Z91.14 Patient's other noncompliance with medication regimen; Z88.0 Allergy status to penicillin
CPT/HCPCS: 36415; 80053; 80320; 83605; 83735; 85025; 85610; 93005; 99283; G0480

== ENCOUNTER 2017-10-26 22:18 | Emergency (ER) | payer OTHER ==
[2017-10-26 23:01] LABS: ABS Basophils 0.1 10^3/ul (0-0.2); ABS Eosinophils 0.1 10^3/ul (0-0.6); ABS Monocytes 0.6 10^3/ul (0-0.8); ABS Neutrophils 7.4 10^3/ul (1.5-7.7); ABS Nucleated RBC 0 10^3/ul; Eosinophil % 0.7 % (0-6); Hematocrit 42 % (42-52); Hemoglobin 14.4 g/dl (14.0-18.0); Lymphocyte % 19.7 % (25-47); Mean Corpuscular HGB Conc 35 g/dl (31-36); Mean Corpuscular Hemoglobin 30 pg (27-31); Mean Corpuscular Volume 87 fL (80-94); Mean Platelet Volume 7.5 um3 (7.4-10.4); Nucleated Red Blood Cells % 0.1; Platelet Count 188 10^3/ul (150-450); Red Blood Count 4.78 10^6/ul (4.0-5.4); Red Cell Distribution Width 13 % (10.5-15); White Blood Count 10.2 10^3/ul (3.5-10.8)
[2017-10-26] MEDS: NS 0.9% 1000 ML* 2,000 ML IV ONE (23:14)
[2017-10-26 23:19] LABS: EGFR Non-African American 117.5 (>60)
[2017-10-26] MEDS ORDERED: NS 0.9% 1000 ML* 1,000 ML IV ONE (23:34)
[2017-10-27] MEDS: NS 0.9% 1000 ML* 2,000 ML IV ONE (00:06)
[2017-10-27] MEDS ORDERED: Potassium Chlor TAB* 20 MEQ TAB.ER PO ONE (01:17)
[2017-10-27 03:00] LABS: Urine Appearance Clear; Urine Blood 1+ (Negative); Urine Color Straw; Urine Ketones Negative (Negative); Urine Protein Negative (Negative); Urine Specific Gravity 1.006 (1.010-1.030); Urine Urobilinogen Negative (Negative)
--- NOTE | 2017-10-27 06:09 | ED ---
Gabriel Santos Tiffany, scribed for Jorge Boyce MD on 10/26/17 at 2300 . Substance Abuse/Use - HPI Summary HPI Summary: 22 year old John COHEN to [facility] complains of vomiting since 21:00 today. Symptoms aggravated by nothing. Symptoms alleviated by nothing. Reports lethargy, having had beer/marijuana this evening. Denies seizure. BS en route 144 mg dl per EMS. Per nurse, pt was found in his friend's hot apartment. Hx epilepsy, hx noncompliance with his medication. - History Of Current Complaint Chief Complaint: EDNauseaVomitDiarrh Stated Complaint: VOMITING Time Seen by Provider: 10/26/17 22:37 Hx Obtained From: Patient Aggravating Factor(s): Nothing Alleviating Factor(s): Nothing Associated Signs And Symptoms: Negative - seizure, Other: - Reports lethargy, having had beer/marijuana this evening - Allergies/Home Medications Allergies/Adverse Reactions: Allergies Allergy/AdvReac Type Severity Reaction Status Date / Time Penicillins Allergy Rash Verified 10/26/17 22:37 PMH/Surg Hx/FS Hx/Imm Hx Previously Healthy: No Endocrine/Hematology History: Denies: Hx Anticoagulant Therapy Sensory History: Denies: Hx Legally Blind Opthamlomology History: Denies: Hx Legally Blind Neurological History: Reports: Hx Seizures - Cancer History Cancer Type, Location and Year: H/O EPILEPSY - Surgical History Surgery Procedure, Year, and Place: Level 5 caveat: Surgical history unobtainable b/c pt is not answering questions - Immunization History Date of Influenza Vaccine: Fall 2016 Immunizations Up to Date: Unable to Obtain/Confirm Infectious Disease History: Unable to Obtain/Confirm Infectious Disease History: Denies: Traveled Outside the [place] in Last 30 Days - Family History Known Family History: Negative: Hypertension - Social History Alcohol Use: Occasionally Hx Substance Use: Yes Substance Use Type: Reports: Marijuana Hx Tobacco Use: Yes Smoking Status (MU): Light Every Day Tobacco Smoker Review of Systems Positive: Other - lethargy Positive: Vomiting Neurological: Negative - Seizure Positive: Other - having had beer/marijuana this evening All Other Systems Reviewed And Are Negative: Yes Physical Exam - Summary Physical Exam Summary: VITAL SIGNS: Reviewed. GENERAL: Patient is a well-developed and nourished male who is lying comfortable in the stretcher. Patient is not in any acute respiratory distress. HEAD AND FACE: No signs of trauma. No ecchymosis, hematomas or skull depressions. No sinus tenderness. EYES: PERRLA, EOMI x 2, No injected conjunctiva, no nystagmus. EARS: Hearing grossly intact. Ear canals and tympanic membranes are within normal limits. MOUTH: Oropharynx within normal limits. NECK: Supple, trachea is midline, no adenopathy, no JVD, no carotid bruit, no c- spine tenderness, neck with full ROM. CHEST: Symmetric, no tenderness at palpation LUNGS: Clear to auscultation bilaterally. No wheezing or crackles. CVS: Regular rate and rhythm, S1 and S2 present, no murmurs or gallops appreciated. ABDOMEN: Soft, non-tender. No signs of distention. No rebound no guarding, and no masses palpated. Bowel sounds are normal. EXTREMITIES: FROM in all major joints, no edema, no cyanosis or clubbing. NEURO: Pt is sleeping, arousable. He is lying in a position. SKIN: Dry and warm Triage Information Reviewed: Yes Vital Signs On Initial Exam: Initial Vitals Temp Pulse Resp BP Pulse Ox 97.4 F 88 16 98/60 93 10/26/17 22:20 10/26/17 22:20 10/26/17 22:20 10/26/17 22:20 10/26/17 22:20 Vital Signs Reviewed: Yes Diagnostics - Vital Signs Vital Signs Temp Pulse Resp BP Pulse Ox 10/26/17 22:28 84 25 92 10/26/17 22:20 97.4 F 88 16 98/60 93 - Laboratory Result Diagrams: 10/26/17 22:51 10/26/17 22:51 Lab Statement: Any lab studies that have been ordered have been reviewed, and results considered in the medical decision making process. - CT Brain CT Interpretation Completed By: Radiologist - Negative. ED physician has reviewed this report. Course/Dx - Course Course Of Treatment: 22 year old M BIBA to [facility] complains of vomiting since 21: 00 today. Bloodwork/UAs obtained. Pt hydrated with fluids. He will be discharged with follow-up from PMD in 1-2 days. - Diagnoses Provider Diagnoses: Alcohol intoxication, Substance abuse Discharge - Sign-Out/Discharge Documenting (check all that apply): Discharge/Admit/Transfer - Discharge Plan Condition: Stable Disposition: HOME Patient Education Materials: Alcohol Intoxication (ED), Cannabis Abuse (ED) Referrals: No Primary Care Phys,NOPCP [Primary Care Provider] - [facility] [place] [facility] [Outside] - 2 Days Additional Instructions: You are advised to set up a primary care provider for a follow-up appointment in 1-2 days. Return to the Emergency Department for any new or worsening symptoms. The documentation as recorded by the Gabriel ramos Tiffany accurately reflects the service I personally performed and the decisions made by , Jorge Boyce MD.
[2017-10-27 06:21] VITALS: BP 121/83
--- NOTE | 2017-10-27 07:41 | RAD ---
INDICATION: Confusion. COMPARISON: Comparison is made with a prior CT brain from April 21, 2017. TECHNIQUE: Contiguous axial sections of the brain were obtained from the skull base to the vertex without contrast. FINDINGS: There is a moderate to large area of encephalomalacia present peripherally in the left temporal and adjacent parietal lobes which is unchanged from the prior study suggestive of an old infarct. There is negative mass effect with dilatation of the body and atrium of the left lateral ventricle which is also unchanged. No other focal abnormality or mass effect is seen. There is no evidence for hemorrhage. No significant focal osseous abnormality is seen. The visualized portion of the paranasal sinuses and mastoid air cells appear clear. IMPRESSION: 1. NO EVIDENCE FOR GROSS ACUTE INFARCT, MASS EFFECT OR HEMORRHAGE. 2. MODERATE TO LARGE AREA OF ENCEPHALOMALACIA IN THE LEFT TEMPORAL AND PARIETAL LOBES, UNCHANGED MOST CONSISTENT WITH AN OLD INFARCT.
== END 2017-10-27 06:28 | disposition home or self-care (01) ==
LOC: ED 22:18
DX: F10.129 Alcohol abuse with intoxication, unspecified (principal); F12.90 Cannabis use, unspecified, uncomplicated; R53.83 Other fatigue; G40.909 Epilepsy, unspecified, not intractable, without status epilepticus; Z91.14 Patient's other noncompliance with medication regimen; Z88.0 Allergy status to penicillin; F17.200 Nicotine dependence, unspecified, uncomplicated
CPT/HCPCS: 36415; 70450; 80053; 80307; 80320; 80329; 81003; 81015; 82550; 83605; 84443; 85025; 96360; 96361; 99284; A9270-GY; G0480

== ENCOUNTER 2017-11-01 09:54 | Emergency (ER) | payer OTHER ==
[2017-11-01] MEDS ORDERED: Tetan/Diph/Pertus SYR(Tdap)* 0.5 ML SYR(BOOSTRIX) use SYR IM ONE (10:52)
[2017-11-01] MEDS ORDERED: Acetaminophen TAB* 325 MG PO ONE (10:52)
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
[2017-11-01 12:04] VITALS: BP 111/64
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
== END 2017-11-01 12:03 | disposition home or self-care (01) ==
LOC: ED 09:54
DX: S09.90XA Unspecified injury of head, initial encounter (principal); S01.01XA Laceration without foreign body of scalp, initial encounter; X58.XXXA Exposure to other specified factors, initial encounter; Y93.9 Activity, unspecified; Y92.9 Unspecified place or not applicable; Z23 Encounter for immunization; Z59.0 Homelessness; G93.89 Other specified disorders of brain; G40.909 Epilepsy, unspecified, not intractable, without status epilepticus; Z88.0 Allergy status to penicillin; F17.200 Nicotine dependence, unspecified, uncomplicated
CPT/HCPCS: 12001; 70450; 90471; 90715; 99282; A9270-GY

== ENCOUNTER 2017-11-30 13:05 | Observation (INO) | payer OTHER ==
[2017-11-30] MEDS: NS 0.9% 1000 ML* 3,000 ML IV ONE ×3 (13:14→14:01)
[2017-11-30 13:44] LABS: Hematocrit 45 % (42-52); Hemoglobin 15.1 g/dl (14.0-18.0); Mean Corpuscular HGB Conc 33 g/dl (31-36); Mean Corpuscular Hemoglobin 30 pg (27-31); Mean Corpuscular Volume 90 fL (80-94); Mean Platelet Volume 8.1 um3 (7.4-10.4); Platelet Count 223 10^3/ul (150-450); Red Blood Count 5.07 10^6/ul (4.00-5.40); Red Cell Distribution Width 14 % (10.5-15); White Blood Count 15.6 10^3/ul (3.5-10.8)
[2017-11-30 13:49] LABS: INR 0.9 (0.77-1.02)
[2017-11-30 13:52] LABS: EGFR Non-African American 61.8 (>60)
--- NOTE | 2017-11-30 14:00 | RAD ---
HISTORY: AMS COMPARISONS: November 01, 2012 TECHNIQUE: Multiple contiguous axial CT scans were obtained of the head without intravenous contrast. FINDINGS: HEMORRHAGE/INFARCT: There is no hemorrhage or acute infarct. MASSES/SHIFT: There is no mass or shift. EXTRA-AXIAL SPACES: There are no extra-axial fluid collections. SULCI AND VENTRICLES: The sulci and ventricles are normal in size and position for the patient's stated age. CEREBRUM: There is stable left parietotemporal encephalomalacia consistent with remote left MCA infarct BRAINSTEM: There are no focal parenchymal abnormalities. CEREBELLUM: There are no focal parenchymal abnormalities. VESSELS: The vessels are grossly normal. PARANASAL SINUSES: The paranasal sinuses are clear. ORBITS: The orbits are unremarkable. BONES AND SOFT TISSUE: No bone or soft tissue abnormalities are noted. OTHER: None IMPRESSION: NO ACUTE INTRACRANIAL PATHOLOGY. STABLE LEFT CEREBRAL ENCEPHALOMALACIA CONSISTENT WITH REMOTE INFARCT.
--- NOTE | 2017-11-30 14:01 | RAD ---
INDICATION: Possible seizures. COMPARISON: No relevant prior exams available on the [facility] [place] for comparison. TECHNIQUE: Multidetector CT base of the skull through mandible without contrast. Multiplanar reformation. REPORT: Artifact from dental amalgam. Motion artifact further degrades image quality. The orbital and maxillary sinus margins, zygomatic arches, lamina papyracea, base of the maxilla, pterygoid plates, and nasal bones are intact. The mandible is intact. Normal temporal mandibular joint alignment. No soft tissue plane hematoma evident. Unremarkable orbital contents. Normally aerated paranasal sinuses and mastoid air spaces. IMPRESSION: #. No evidence for maxillofacial fracture.
--- NOTE | 2017-11-30 14:01 | RAD ---
HISTORY: AMS COMPARISONS: None TECHNIQUE: Multiple contiguous axial CT scans were obtained of the cervical spine without intravenous contrast, with coronal and sagittal multiplanar reformations. FINDINGS: BRAIN: The visualized brain is unremarkable CENTRAL CANAL: Evaluation of the central canal is limited on CT technique, however there is no obvious canalicular mass or epidural hemorrhage. ALIGNMENT: The alignment is normal, without subluxation or dislocation. VERTEBRAL BODIES: The odontoid process is intact. The atlantoaxial intervals are symmetric. The vertebral bodies are normal in attenuation, without fracture. JOINTS: There is no subluxation or dislocation MUSCULATURE: Unremarkable INTERVERTEBRAL DISCS: The intervertebral disc spaces are relatively preserved in height. AXIAL IMAGES: On axial images, there is no osseous neural foraminal narrowing or central canal stenosis. SOFT TISSUES: The visualized soft tissues of the neck are unremarkable. The prevertebral fat stripe is preserved. OTHER: None. IMPRESSION: NO ACUTE OSSEOUS INJURY TO THE CERVICAL SPINE
[2017-11-30 14:17] LABS: ABS Basophils 0.1 10^3/ul (0-0.2); ABS Eosinophils 0 10^3/ul (0-0.6); ABS Lymphocytes 2.4 10^3/ul (1.0-4.8); ABS Monocytes 1.7 10^3/ul (0-0.8); ABS Neutrophils 11.5 10^3/ul (1.5-7.7); ABS Nucleated RBC 0 10^3/ul; Eosinophil % 0.1 % (0-6); Lymphocyte % 15.2 % (25-47); Nucleated Red Blood Cells % 0.1
[2017-11-30] MEDS ORDERED: Ondansetron INJ* 2 MG/ML VIAL IV ONE (14:34)
[2017-11-30 15:16] LABS: Urine Appearance Clear; Urine Blood 2+ (Negative); Urine Color Yellow; Urine Ketones Negative (Negative); Urine Protein 1+(30 mg/dL) (Negative); Urine Red Blood Cell Trace(0-2/hpf) (Absent); Urine Specific Gravity 1.009 (1.010-1.030); Urine Urobilinogen Negative (Negative); Urine White Blood Cell Trace(0-5/hpf) (Absent)
--- NOTE | 2017-11-30 15:45 | ED ---
Nay Santos Edward, scribed for Dano Urias MD on 11/30/17 at 1315 . Neurological HPI - HPI Summary HPI Summary: 22 y/o male BIBA s/p possible seizure activity earlier today. Pt c/o TIWARI currently. Not aggravated or alleviated by anything. Pt was found by EMS outside at [facility]. Found moaning and not responsive. Sweating profusely. Pt feels dehydrated. Per EMS, pt states he has not been feeling well all day. - History of Current Complaint Stated Complaint: POSSIBLE SEIZURES Time Seen by Provider: 11/30/17 13:09 Hx Obtained From: Patient Onset/Duration: Started hours ago Timing: Intermittent Episodes Lasting: Neurological Deficit Location: Generalized Seizure Character: Generalized Aggravating: Nothing Alleviating: Nothing Associated Signs and Symptoms: Positive: Headache, Seizure - Allergy/Home Medications Allergies/Adverse Reactions: Allergies Allergy/AdvReac Type Severity Reaction Status Date / Time Penicillins Allergy Rash Verified 10/26/17 22:37 Home Medications: Home Medications Albuterol HFA INHALER* [Ventolin HFA Inhaler*] 2 puff INH Q6H PRN 11/30/17 [ History Confirmed 11/30/17] OXcarbazepine TAB(*) [Trileptal 300 mg TAB(*)] 600 mg PO TID 11/30/17 [History Confirmed 11/30/17] PMH/Surg Hx/FS Hx/Imm Hx Previously Healthy: No Endocrine/Hematology History: Denies: Hx Anticoagulant Therapy Sensory History: Denies: Hx Legally Blind Opthamlomology History: Denies: Hx Legally Blind Neurological History: Reports: Hx Seizures - Cancer History Cancer Type, Location and Year: H/O EPILEPSY - Surgical History Surgery Procedure, Year, and Place: Level 5 caveat: Surgical history unobtainable b/c pt is not answering questions - Immunization History Date of Influenza Vaccine: Fall 2016 - Family History Known Family History: Negative: Hypertension - Social History Alcohol Use: Occasionally Hx Substance Use: Yes Substance Use Type: Reports: Marijuana Hx Tobacco Use: Yes Smoking Status (MU): Light Every Day Tobacco Smoker Review of Systems Positive: Other - "feels dehydrated" Eyes: Negative ENT: Negative Cardiovascular: Negative Respiratory: Negative Gastrointestinal: Negative Genitourinary: Negative Musculoskeletal: Negative Skin: Negative Neurological: Other - possible seizure Positive: Headache Psychological: Normal All Other Systems Reviewed And Are Negative: Yes Physical Exam Triage Information Reviewed: Yes Vital Signs On Initial Exam: Initial Vitals Temp Pulse Resp BP Pulse Ox 99.1 F 102 28 142/78 98 11/30/17 13:06 11/30/17 13:06 11/30/17 13:06 11/30/17 13:06 11/30/17 13:06 Vital Signs Reviewed: Yes Appearance: Positive: No Pain Distress Skin: Positive: Warm, Skin Color Reflects Adequate Perfusion, Dry, Other - Abrasions @ side of face Head/Face: Positive: Normal Head/Face Inspection Eyes: Positive: EOMI, KEVAN ENT: Positive: Normal ENT inspection Dental: Positive: Other - Oral mucosa dry Neck: Positive: Supple, Nontender Respiratory/Lung Sounds: Positive: Clear to Auscultation, Breath Sounds Present Cardiovascular: Positive: Tachycardia Abdomen Description: Positive: Nontender, Soft Bowel Sounds: Positive: Present Musculoskeletal: Positive: Normal, Strength/ROM Intact Neurological: Positive: Sensory/Motor Intact, Alert, Oriented to Person Place, Time, Other - Slow to respond Psychiatric: Positive: Affect/Mood Appropriate Diagnostics - Vital Signs Vital Signs Temp Pulse Resp BP Pulse Ox 11/30/17 15:09 101 28 138/76 97 11/30/17 15:00 98 27 97 11/30/17 14:40 96 28 136/83 96 11/30/17 14:00 81 12 99 11/30/17 13:13 28 142/78 11/30/17 13:09 27 11/30/17 13:06 99.1 F 102 28 142/78 98 - Laboratory Lab Results: Lab Results 11/30/17 11/30/17 11/30/17 Range/Units 13:23 13:23 13:23 WBC 15.6 H (3.5-10.8) 10^3/ul RBC 5.07 (4.00-5.40) 10^6/ul Hgb 15.1 (14.0-18.0) g/dl Hct 45 (42-52) % MCV 90 (80-94) fL MCH 30 (27-31) pg MCHC 33 (31-36) g/dl RDW 14 (10.5-15) % Plt Count 223 (150-450) 10^3/ul MPV 8.1 (7.4-10.4) um3 Neut % (Auto) 73.5 (38-83) % Lymph % (Auto) 15.2 L (25-47) % [place]ead[place] % (Auto) 10.8 H (0-7) % Eos % (Auto) 0.1 (0-6) % Baso % (Auto) 0.4 (0-2) % Absolute Neuts (auto) 11.5 H (1.5-7.7) 10^3/ul Absolute Lymphs (auto) 2.4 (1.0-4.8) 10^3/ul Absolute Monos (auto) 1.7 H (0-0.8) 10^3/ul Absolute Eos (auto) 0 (0-0.6) 10^3/ul Absolute Basos (auto) 0.1 (0-0.2) 10^3/ul Absolute Nucleated RBC 0 10^3/ul Nucleated RBC % 0.1 INR (Anticoag Therapy) 0.90 (0.77-1.02) APTT 25.3 L (26.0-36.3) seconds ABG pH (7.35-7.45) ABG pCO2 (35-45) mmHg ABG pO2 (80-100) mmHg ABG HCO3 (19-31) mmol/L ABG O2 Saturation (95-98) % ABG Base Excess (-2.0-2.0) Sodium 136 (135-145) mmol/L Potassium 4.0 (3.5-5.0) mmol/L Chloride 102 (101-111) mmol/L Carbon Dioxide 10 L* (22-32) mmol/L Anion Gap 24 H (2-11) mmol/L BUN 17 (6-24) mg/dL Creatinine 1.43 H (0.67-1.17) mg/dL Est GFR ( Amer) 74.8 (>60) Est GFR (Non-Af Amer) 61.8 (>60) BUN/Creatinine Ratio 11.9 (8-20) Glucose 114 H (70-100) mg/dL Lactic Acid (0.5-2.0) mmol/L Calcium 8.7 (8.6-10.3) mg/dL Magnesium 2.9 H (1.9-2.7) mg/dL Total Bilirubin 0.40 (0.2-1.0) mg/dL AST 37 (13-39) U/L ALT 23 (7-52) U/L Alkaline Phosphatase 99 (34-104) U/L Ammonia (16-53) mcmol/L Total Creatine Kinase 762 H (10-223) U/L CK-MB (CK-2) 12.5 H (0.6-6.3) ng/mL Troponin I 0.03 (<0.04) ng/mL C-Reactive Protein 1.67 (<8.01) mg/L B-Natriuretic Peptide ( - 100) pg/mL Total Protein 7.3 (6.4-8.9) g/dL Albumin 4.5 (3.2-5.2) g/dL Globulin 2.8 (2-4) g/dL Albumin/Globulin Ratio 1.6 (1-3) Lipase 15 (11.0-82.0) U/L TSH 0.59 (0.34-5.60) mcIU/mL Urine Color Urine Appearance Urine pH (5-9) Ur Specific [place] (1.010-1.030) Urine Protein (Negative) Urine Ketones (Negative) Urine Blood (Negative) Urine Nitrate (Negative) Urine Bilirubin (Negative) Urine Urobilinogen (Negative) Ur Leukocyte Esterase (Negative) Urine WBC (Auto) (Absent) Urine RBC (Auto) (Absent) Urine Bacteria (Absent) Hyaline Casts (Absent) Urine Glucose (Negative) Salicylates < 2.50 (<30) mg/dL Urine Opiates Screen (None Detect) Acetaminophen < 15 mcg/mL Ur Barbiturates Screen (None Detect) Ur Phencyclidine Scrn (None Detect) Ur Amphetamines Screen (None Detect) U Benzodiazepines Scrn (None Detect) Urine Cocaine Screen (None Detect) U Cannabinoids Screen (None Detect) Serum Alcohol < 10 (<10) mg/dL 11/30/17 11/30/17 11/30/17 Range/Units 13:23 13:23 14:33 WBC (3.5-10.8) 10^3/ul RBC (4.00-5.40) 10^6/ul Hgb (14.0-18.0) g/dl Hct (42-52) % MCV (80-94) fL MCH (27-31) pg MCHC (31-36) g/dl RDW (10.5-15) % Plt Count (150-450) 10^3/ul MPV (7.4-10.4) um3 Neut % (Auto) (38-83) % Lymph % (Auto) (25-47) % [place] % (Auto) (0-7) % Eos % (Auto) (0-6) % Baso % (Auto) (0-2) % Absolute Neuts (auto) (1.5-7.7) 10^3/ul Absolute Lymphs (auto) (1.0-4.8) 10^3/ul Absolute Monos (auto) (0-0.8) 10^3/ul Absolute Eos (auto) (0-0.6) 10^3/ul Absolute Basos (auto) (0-0.2) 10^3/ul Absolute Nucleated RBC 10^3/ul Nucleated RBC % INR (Anticoag Therapy) (0.77-1.02) APTT (26.0-36.3) seconds ABG pH 7.34 L (7.35-7.45) ABG pCO2 31 L (35-45) mmHg ABG pO2 91 (80-100) mmHg ABG HCO3 18.7 L (19-31) mmol/L ABG O2 Saturation 97.6 (95-98) % ABG Base Excess -7.9 L (-2.0-2.0) Sodium (135-145) mmol/L Potassium (3.5-5.0) mmol/L Chloride (101-111) mmol/L Carbon Dioxide (22-32) mmol/L Anion Gap (2-11) mmol/L BUN (6-24) mg/dL Creatinine (0.67-1.17) mg/dL Est GFR ( Amer) (>60) Est GFR (Non-Af Amer) (>60) BUN/Creatinine Ratio (8-20) Glucose (70-100) mg/dL Lactic Acid 13.1 H* (0.5-2.0) mmol/L Calcium (8.6-10.3) mg/dL Magnesium (1.9-2.7) mg/dL Total Bilirubin (0.2-1.0) mg/dL AST (13-39) U/L ALT (7-52) U/L Alkaline Phosphatase (34-104) U/L Ammonia 138 H (16-53) mcmol/L Total Creatine Kinase (10-223) U/L CK-MB (CK-2) (0.6-6.3) ng/mL Troponin I (<0.04) ng/mL C-Reactive Protein (<8.01) mg/L B-Natriuretic Peptide 16 ( - 100) pg/mL Total Protein (6.4-8.9) g/dL Albumin (3.2-5.2) g/dL Globulin (2-4) g/dL Albumin/Globulin Ratio (1-3) Lipase (11.0-82.0) U/L TSH (0.34-5.60) mcIU/mL Urine Color Urine Appearance Urine pH (5-9) Ur Specific [place] (1.010-1.030) Urine Protein (Negative) Urine Ketones (Negative) Urine Blood (Negative) Urine Nitrate (Negative) Urine Bilirubin (Negative) Urine Urobilinogen (Negative) Ur Leukocyte Esterase (Negative) Urine WBC (Auto) (Absent) Urine RBC (Auto) (Absent) Urine Bacteria (Absent) Hyaline Casts (Absent) Urine Glucose (Negative) Salicylates (<30) mg/dL Urine Opiates Screen (None Detect) Acetaminophen mcg/mL Ur Barbiturates Screen (None Detect) Ur Phencyclidine Scrn (None Detect) Ur Amphetamines Screen (None Detect) U Benzodiazepines Scrn (None Detect) Urine Cocaine Screen (None Detect) U Cannabinoids Screen (None Detect) Serum Alcohol (<10) mg/dL 11/30/17 11/30/17 Range/Units 14:56 14:56 WBC (3.5-10.8) 10^3/ul RBC (4.00-5.40) 10^6/ul Hgb (14.0-18.0) g/dl Hct (42-52) % MCV (80-94) fL MCH (27-31) pg MCHC (31-36) g/dl RDW (10.5-15) % Plt Count (150-450) 10^3/ul MPV (7.4-10.4) um3 Neut % (Auto) (38-83) % Lymph % (Auto) (25-47) % Beadle % (Auto) (0-7) % Eos % (Auto) (0-6) % Baso % (Auto) (0-2) % Absolute Neuts (auto) (1.5-7.7) 10^3/ul Absolute Lymphs (auto) (1.0-4.8) 10^3/ul Absolute Monos (auto) (0-0.8) 10^3/ul Absolute Eos (auto) (0-0.6) 10^3/ul Absolute Basos (auto) (0-0.2) 10^3/ul Absolute Nucleated RBC 10^3/ul Nucleated RBC % INR (Anticoag Therapy) (0.77-1.02) APTT (26.0-36.3) seconds ABG pH (7.35-7.45) ABG pCO2 (35-45) mmHg ABG pO2 (80-100) mmHg ABG HCO3 (19-31) mmol/L ABG O2 Saturation (95-98) % ABG Base Excess (-2.0-2.0) Sodium (135-145) mmol/L Potassium (3.5-5.0) mmol/L Chloride (101-111) mmol/L Carbon Dioxide (22-32) mmol/L Anion Gap (2-11) mmol/L BUN (6-24) mg/dL Creatinine (0.67-1.17) mg/dL Est GFR ( Amer) (>60) Est GFR (Non-Af Amer) (>60) BUN/Creatinine Ratio (8-20) Glucose (70-100) mg/dL Lactic Acid (0.5-2.0) mmol/L Calcium (8.6-10.3) mg/dL Magnesium (1.9-2.7) mg/dL Total Bilirubin (0.2-1.0) mg/dL AST (13-39) U/L ALT (7-52) U/L Alkaline Phosphatase (34-104) U/L Ammonia (16-53) mcmol/L Total Creatine Kinase (10-223) U/L CK-MB (CK-2) (0.6-6.3) ng/mL Troponin I (<0.04) ng/mL C-Reactive Protein (<8.01) mg/L B-Natriuretic Peptide ( - 100) pg/mL Total Protein (6.4-8.9) g/dL Albumin (3.2-5.2) g/dL Globulin (2-4) g/dL Albumin/Globulin Ratio (1-3) Lipase (11.0-82.0) U/L TSH (0.34-5.60) mcIU/mL Urine Color Yellow Urine Appearance Clear Urine pH 5.0 (5-9) Ur Specific [place] 1.009 L (1.010-1.030) Urine Protein 1+(30 mg/dl) A (Negative) Urine Ketones Negative (Negative) Urine Blood 2+ A (Negative) Urine Nitrate Negative (Negative) Urine Bilirubin Negative (Negative) Urine Urobilinogen Negative (Negative) Ur Leukocyte Esterase Negative (Negative) Urine WBC (Auto) Trace(0-5/hpf) (Absent) Urine RBC (Auto) Trace(0-2/hpf) (Absent) Urine Bacteria Absent (Absent) Hyaline Casts Present A (Absent) Urine Glucose Negative (Negative) Salicylates (<30) mg/dL Urine Opiates Screen None detected (None Detect) Acetaminophen mcg/mL Ur Barbiturates Screen None detected (None Detect) Ur Phencyclidine Scrn None detected (None Detect) Ur Amphetamines Screen Presumptive positive A (None Detect) U Benzodiazepines Scrn None detected (None Detect) Urine Cocaine Screen None detected (None Detect) U Cannabinoids Screen Presumptive positive A (None Detect) Serum Alcohol (<10) mg/dL Result Diagrams: 11/30/17 13:23 11/30/17 13:23 Lab Statement: Any lab studies that have been ordered have been reviewed, and results considered in the medical decision making process. - CT BRAIN CT CT Interpretation: No Acute Changes - NO ACUTE INTRACRANIAL PATHOLOGY. STABLE LEFT CEREBRAL ENCEPHALOMALACIA CONSISTENT WITH REMOTE INFARCT. CT Interpretation Completed By: Radiologist MAXILLOFACIAL CT CT Interpretation: No Acute Changes - NO EVIDENCE FOR MAXILLOFACIAL fRACTURE CT Interpretation Completed By: Radiologist CERVICAL SPINE CT Interpretation: No Acute Changes - NO ACUTE OSSEOUS INJURY TO THE CERVICAL SPINE CT Interpretation Completed By: Radiologist - Additional Comments Diagnostic Additional Comments: EKG - 14:24 - NSR @ [address] Elevation at anterior leads, probable normal early repolarization pattern. No ectopy. Course/Dx - Course Course Of Treatment: ADMIT HOSPITALIST - Diagnoses Provider Diagnoses: Altered mental state, Hyperammonemia - Physician Notifications Discussed Care Of Patient With: Hong Kardon Time Discussed With Above Provider: 14:35 Instructed by Provider To: Admit As Inpatient - Critical Care Time Critical Care Time: 30-74 min Discharge - Sign-Out/Discharge Documenting (check all that apply): Discharge/Admit/Transfer - Discharge Plan Condition: Stable Disposition: ADMITTED TO [facility] - Billing Disposition and Condition Condition: STABLE Disposition: Admitted to [facility] The documentation as recorded by the Nay ramos Edward accurately reflects the service I personally performed and the decisions made by , Dano Urias MD.
[2017-11-30] MEDS ORDERED: Albuterol HFA INHALER* 8 gm MDI INH PRN (15:49)
[2017-11-30] MEDS ORDERED: Acetaminophen TAB* 325 MG PO PRN (16:47)
[2017-11-30] MEDS: NS 0.9% 1000 ML* 1,000 ML IV SCH (16:59)
[2017-11-30] MEDS: OXcarbazepine TAB(*) 300 MG PO SCH (19:58)
--- NOTE | 2017-12-01 01:17 | HP ---
HISTORY AND PHYSICAL: DATE OF ADMISSION: 11/30/17. PRIMARY CARE PROVIDER: None. ATTENDING PHYSICIAN: Dr. Raza Thorne* (dictated by Christina Flanagan, NICOLE). CHIEF COMPLAINT: Altered mental status and possible seizure. HISTORY OF PRESENT ILLNESS: Mr. Reyes is a 22-year-old male with past medical history significant for epilepsy, who has been homeless for unclear amount of time. Please note that the patient is very vague and answers questions with multiple different answers. It appears that the patient was last seen approximately 1 month ago in the emergency room with head laceration, he was unsure of he injured his head. This was repaired in the emergency room. At that time, the patient reported being homeless and living [place] a bridge. According to the patient, he had been "camping for 3 days" and went to the [facility] this morning where he reports he had 2 seizures. According to the patient, he has been taking his Trileptal except for 3 days when he ran out his medication. According to [facility] where he fills his prescription, he last filled his Trileptal on August 31 of this year, and his prescription was filled by a Dr. Mallory. The patient denies any fevers, chest discomfort, nausea, vomiting, diarrhea. According to reports from earlier today , the patient was noted to be diaphoretic and very warm to the touch. He denies any cough. He reports quite sometime ago having a molar bothering him on his right upper jaw and he reports removing that by himself. His second seizure was [facility] and EMS was called and the patient was brought to the emergency room. While in the emergency room, the patient had labs that were significant for leukocytosis with a white blood cell count of 15.6. His chemistry was remarkable for carbon dioxide level of 10, creatinine of 1.43, lactic acid of 13.1, magnesium of 2.9, ammonia 138, CK 762. The patient had an EKG showing sinus rhythm. No acute signs of ischemia. 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 A C-spine CT showing no acute osseous injury. Maxillofacial CT showing no evidence for maxillofacial fracture. He did an ABG significant for a pH of 7.34, pCO2 31, pO2 91, HCO3 18.7, O2 sat 97.6, base excess negative 7.9. He had a toxicology showing positive for amphetamines and marijuana. It is also to note that the patient reports that he has not been eating or drinking well for the last 3 days prior to going to the [facility]. He received a liter of saline. According to the patient, he was formerly living with his grandmother until she went to a correction. He is unable to elaborate on how long ago was this was. PAST MEDICAL HISTORY: Epilepsy. PAST SURGICAL HISTORY: None. HOME MEDICATIONS: Include: 1. Trileptal 600 mg oral 3 times daily. 2. Albuterol HFA inhaler 2 puffs inhalations every 6 hours as needed for shortness of breath or wheeze. ALLERGIES: PENICILLIN. FAMILY HISTORY: The patient denies any family history of coronary artery disease, diabetes mellitus, or cancer. SOCIAL HISTORY: The patient is currently homeless. He is a current smoker, he will not elaborate how much he smokes daily. He reports "a lot." He states he does not count. He reports occasionally drinking alcohol. Occasionally smoking marijuana. At this time, he does not wish to delegate a surrogate decision maker. He states in the past his grandmother assisted him, but currently resides in a correction. REVIEW OF SYSTEMS: I performed an 11-point review of systems. All the pertinent positives and negatives are mentioned in the history of present illness. Remainder of the review of systems are negative. PHYSICAL EXAMINATION GENERAL APPEARANCE: The patient is alert, pleasant and appears to be in no acute distress. VITAL SIGNS: Temperature 99.1, heart rate 98, respiratory rate 20, O2 sat 96% on room air, blood pressure 136/83. HEENT: Normocephalic, atraumatic. Pupils are equal and reactive to light. Extraocular movements are intact. RESPIRATORY: There is no accessory muscle use. The lungs are clear to auscultation bilateral. CARDIOVASCULAR: Regular rate and rhythm. S1, S2 present. There is no murmurs , rubs, or gallops heard. ABDOMEN: Soft, nontender, nondistended. There are bowel sounds present x4. EXTREMITIES: There is no lower extremity edema. DP and PT pulses are 2+ and symmetric. MUSCULOSKELETAL: There is no clubbing or cyanosis noted. The patient exhibits good strength in all extremities. NEUROLOGICAL: The patient is alert, but drowsy, and oriented x4. Cranial nerves II through XII are grossly intact. PSYCHOLOGICAL: The patient is calm and cooperative. SKIN: There are no rashes seen. The patient does have ecchymosis under his right eye and on his chin. DIAGNOSTIC STUDIES/LAB DATA: Sodium 136, potassium 4.0, chloride 102, CO2 10, BUN 17, creatinine 1.47, glucose 114. Magnesium 2.9. White blood cell count 15.6, hemoglobin 15.1, hematocrit 45, platelet count 223. ABG shows a pH of 7.34, pCO2 31, pO2 91, HCO3 18.7, O2 sat 97.6 and base excess negative 7.9. Lactic acid 13.1, ammonia 138, CK 762, CK-MB 12.5. Toxicology significant for amphetamines and marijuana positive. EKG shows a sinus rhythm rate of 89. There are no acute signs of ischemia and this EKG is similar to previous from 07/24/17. Brain CT from today. Radiologist's impression: No acute intracranial pathology. Stable left cerebral encephalomalacia with remote infarct. Cervical spine CT from today. Radiologist's impression: No acute osseous injury to the cervical spine. Maxillofacial CT from today. Radiologist's impression: No evidence for maxillofacial fracture. IMPRESSION: Mr. Reyes is a 22-year-old male with past medical history significant for epilepsy, who presented to the emergency room after a witnessed seizure today. He will be admitted as an observation for seizures and altered mental status. ASSESSMENT/PLAN: 1. Seizures. The patient reports having 2 seizures today, one was witnessed at the [facility]. His prolactin is within normal limits. His lactic acid is 13.1, I suspect secondary to his seizure. His pCO2 is 31, I also suspect this is secondary to his seizure. The patient states he has been taking his Trileptal except for over the past 3 days. I am not sure if this is accurate as according to his pharmacy, he last filled it on August 31. We will check the Trileptal level. However, he will be placed on seizure precautions. I will attempt to get records from his neurologist's office. 2. Acute kidney injury. I suspect this is secondary to dehydration as the patient reports he has not been eating or drinking for 2 days. We will give him IV fluids, recheck his labs in the morning. 3. Lactic acidosis and leukocytosis. I suspect this is secondary to the patient's seizure. He has no signs of infection at this time. We will give him IV hydration, recheck labs. 4. Elevated ammonia level. Unclear etiology at this time. We will continue the patient on lactulose and recheck his ammonia in the morning. The patient does have some mild encephalopathy, I suspect secondary to his seizure and his elevated ammonia level. His liver function tests are within normal limits. 5. Mild rhabdomyolysis. The patient will be IV fluids. We will recheck his CK in the morning. 6. Fluids, electrolytes, and nutrition. The patient will on a regular diet. 7. Code status. Full code. 8. DVT prophylaxis. He is at low risk and will be encouraged to ambulate and if he is unable to ambulate, we will use SCDs. 9. Disposition. Observation. TIME SPENT: Time for this admission was approximately 60 minutes, greater than half of that was spent with the patient discussing medications, past medical history, the events leading up to his arrival today, performing a physical examination. The case has been reviewed with the attending, Dr. Thorne, who agrees with the plan of care. Reviewed by JEOVANNY AGUILAR 12/04/17 1815 [id number]/[facility] #: [id number] SABRINA
--- NOTE | 2017-12-01 03:32 | PN ---
Hospitalist Progress Note Date of Service: 12/01/17 Called by RN to report pt has had some irregular heart beats that go from 120s to 70-80s. Pt, however, is asymptomatic but no known arrythmias. Ordered 12 lead EKG.
[2017-12-01] MEDS: NS 0.9% 1000 ML* 1,000 ML IV SCH (03:34)
[2017-12-01 05:27] LABS: ABS Basophils 0.1 10^3/ul (0-0.2); ABS Eosinophils 0.1 10^3/ul (0-0.6); ABS Lymphocytes 1.9 10^3/ul (1.0-4.8); ABS Neutrophils 5.4 10^3/ul (1.5-7.7); ABS Nucleated RBC 0 10^3/ul; Eosinophil % 0.7 % (0-6); Hematocrit 39 % (42-52); Hemoglobin 13.8 g/dl (14.0-18.0); Lymphocyte % 22.5 % (25-47); Mean Corpuscular HGB Conc 35 g/dl (31-36); Mean Corpuscular Hemoglobin 31 pg (27-31); Mean Corpuscular Volume 87 fL (80-94); Mean Platelet Volume 7.9 um3 (7.4-10.4); Nucleated Red Blood Cells % 0; Platelet Count 156 10^3/ul (150-450); Red Blood Count 4.51 10^6/ul (4.00-5.40); Red Cell Distribution Width 14 % (10.5-15); White Blood Count 8.4 10^3/ul (3.5-10.8)
[2017-12-01 05:44] LABS: EGFR Non-African American 81.1 (>60)
--- NOTE | 2017-12-01 08:38 | PN ---
Subjective Date of Service: 12/01/17 Interval History: Patient seen and examined at bedside. Denies fever, chills, shortness of breath , chest discomfort, N/V/D. Pt states that he feels much better today. Pt states that he lives with a friend in [place], but he got "stuck" in [place] over the last few days. He reports drinking liquor most days, up to a bottle a day (Vodka , Whisky, etc.). He reports taking his seizure medications most days, but often forgets. He reports getting his seizure medications from the [facility]. Tele: Sinus rhythm, rate 60-80's Family History: Unchanged from Admission Social History: Unchanged from Admission Past Medical History: Unchanged from Admission Objective Active Medications: Acetaminophen (Tylenol Tab*) 650 mg PO Q4H PRN Reason: FEVER/PAIN Albuterol (Ventolin Hfa Inhaler*) 2 puff INH Q6H PRN Reason: SOB/WHEEZING Sodium Chloride (Ns 0.9% 1000 Ml*) 1,000 mls @ 100 mls/hr IV PER RATE ARTURO Lactulose (Lactulose*) 30 ml PO Q6H ARTURO Oxcarbazepine (Trileptal Tab(*)) 600 mg PO TID ARTURO Vital Signs - 8 hr 12/01/17 12/01/17 02:19 07:20 Temperature 98.4 F 98.9 F Pulse Rate 83 89 Respiratory 16 20 Rate Blood Pressure 114/58 109/73 (mmHg) O2 Sat by Pulse 96 97 Oximetry Oxygen Devices in Use Now: None Appearance: NAD, laying in bed Ears/Nose/Mouth/Throat: Mucous Membranes Moist Respiratory: Symmetrical Chest Expansion and Respiratory Effort, Clear to Auscultation Cardiovascular: NL Sounds; No Murmurs; No JVD, RRR Abdominal: NL Sounds; No Tenderness; No Distention Extremities: No Edema Skin: - - Abrasion under right eye and right side of chin Neurological: Alert and Oriented x 3, NL Muscle Strength and Tone Lines/Tubes/Other Access: Clean, Dry and Intact Peripheral IV - site benign Nutrition: Taking PO's Result Diagrams: 12/01/17 05:01 12/01/17 05:01 Additional Lab and Data: . Assess/Plan/Problems-Billing Assessment: Mr. Reyes is a 22 yo male with PMH significant for epilepsy who presented to the emergency room after a seizure. - Patient Problems (1) Seizures Code(s): R56.9 - UNSPECIFIED CONVULSIONS SNOMED Code(s): 71787805 Comment: - Witnessed seizure yesterday - No further seizure activity - Pt has been non-compliant with his medications - Trileptal level pending - Continue Trileptal (2) MARTIN (acute kidney injury) Code(s): N17.9 - ACUTE KIDNEY FAILURE, UNSPECIFIED SNOMED Code(s): 47273994 Comment: - Resolved with IVFs - Suspect secondary to dehydration (3) Lactic acidosis Code(s): E87.2 - ACIDOSIS SNOMED Code(s): 25266790 Comment: - Resolved - Suspect secondary to dehydration and seizure (4) Leukocytosis Code(s): D72.829 - ELEVATED WHITE BLOOD CELL COUNT, UNSPECIFIED SNOMED Code(s) : 858728246 Comment: - Resolved - No signs of infection - Suspect secondary to seizure (5) Hyperammonemia Code(s): E72.20 - DISORDER OF UREA CYCLE METABOLISM, UNSPECIFIED SNOMED Code(s ): 4075735 Comment: - Ammonia level improving with lactulose - LFTs WNL (6) Rhabdomyolysis Code(s): M62.82 - RHABDOMYOLYSIS SNOMED Code(s): 600701521 Comment: - Mild - Continue IVFs (7) DVT prophylaxis Code(s): CVQ4942 - SNOMED Code(s): 278117063 Comment: - Encourage ambulation (8) Full code status Code(s): Z78.9 - OTHER SPECIFIED HEALTH STATUS SNOMED Code(s): 249809804 Status and Disposition: OBV. Discharge when medically stable, and has a safe discharge plan. Possibly discharge later today.
[2017-12-01] MEDS: OXcarbazepine TAB(*) 300 MG PO SCH ×2 (09:04→14:42)
[2017-12-01 11:33] VITALS: BP 125/69
--- NOTE | 2017-12-02 05:03 | DS ---
CC: [facility] * DISCHARGE SUMMARY: DATE OF ADMISSION: 11/30/17 DATE OF DISCHARGE: 12/01/17 ATTENDING PHYSICIAN: Dr. Rupal Sanches * (dictated by Christina Flanagan NP) PRIMARY CARE PROVIDER: None. PRIMARY DIAGNOSES: 1. Seizure. 2. Lactic acidosis, resolved. 3. Acute kidney injury, resolved. 4. Leukocytosis, resolved. 5. Elevated ammonia level, improving. 6. Mild rhabdomyolysis. SECONDARY DIAGNOSIS: Medical noncompliance. STUDIES WHILE IN THE HOSPITAL: Brain CT from 11/30/17, radiologist impression: No acute intracranial pathology. Stable left cerebral encephalomalacia consistent with remote infarct. Cervical spine CT from 11/30/17, radiologist impression: No acute osseous injury to the cervical spine. Maxillofacial CT from 11/30/17, radiologist impression: No evidence for maxillofacial fracture. DISCHARGE MEDICATIONS: Continued home medications. 1. Oxcarbazepine 600 mg oral 3 times daily. 2. Albuterol HFA inhaler 2 puffs inhalation every 6 hours as needed. HISTORY OF PRESENT ILLNESS/HOSPITAL COURSE: Mr. Reyes is a 22-year-old male with a past medical history significant for epilepsy and noncompliance, who has been homeless for an unclear amount of time. [facility] presentation when he had a witnessed seizure and was brought to the emergency room for further evaluation. It is also to note that the patient had previously been seen in the emergency room 1 month prior with a head laceration at which time, that was repaired and he reported being homeless at that time. Due to his seizure activity, EMS was called. The patient was brought to the emergency room. While in the emergency room, the patient was lethargic with minimal answering of his questions. When asked how long he had been homeless, he reported camping for 3 days prior. He also reported not eating or drinking much for 3 days and running out of his Trileptal 3 days prior. His pharmacy reported that he had not filled his Trileptal since 08/31/17. The patient had labs showing leukocytosis with a white blood cell count of 15.6. His chemistries were remarkable for carbon dioxide level of 10, creatinine of 1.43, lactic acid of 13.1, magnesium 2.9, ammonia 138, CK 762. The patient had an EKG showing a sinus rhythm. No signs of ischemia. He had a head CT showing no acute findings. C-spine CT showing no acute findings. The maxillofacial CT showing no acute findings. He had an ABG showing a pH 7.34, PCO2 of 31, PO2 91, HCO3 18.7, O2 sat 97.6, base excess -7.9. Toxicology was positive for amphetamines and marijuana. Hospitalists were asked to evaluate the patient for admission. While in the hospital, the patient was placed on seizure precautions. He had no further seizure activity. He was more conversive today, reporting that he was unsure how many seizures he had. He reports coming into the [facility] from where he lives in [place] a few days prior and having no transportation back so states he has not been eating or drinking much and that he had not had his Trileptal in 3 days. When I enquired about him not having his Trileptal refilled in 2 months, he states that sometimes he forgets to take it, but for the most part is taking his medication. His acute kidney injury resolved after hydration. I suspect this was secondary to dehydration. His lactic acidosis and leukocytosis resolved. I suspect they were secondary to his seizure and dehydration. The patient was found to have an elevated ammonia level of unclear etiology. He received lactulose and this improved with only having 1 bowel movement during his stay. He was found to have mild rhabdomyolysis. He received IV fluids for this. The patient was encouraged to stop drinking alcohol and stop smoking. He does not have a primary care provider and seen by Social Work in consultation to assist with his homelessness and getting a primary care provider. Mr. Reyes is stable for discharge to home today. Vital signs are as follows: Temperature 98.9, heart rate 89, respiratory rate 20, O2 sat 97% on room air, blood pressure 109/73. DISCHARGE PLAN: Mr. Reyes will be discharged to home. Activities as tolerated. He should be on a regular diet. In regards to his epilepsy, he has been encouraged to continue to take his oxcarbazepine 600 mg oral 3 times daily and to not skip doses. I have sent in a prescription to the pharmacy here at the hospital. They were able to provide the patient with 150 tabs, which is not quite a month supply, so he will need to have a refill on this if he does not currently still have refills at the [facility] where he typically gets his medication. The patient has been encouraged to stay hydrated , and to stop drinking alcohol. He had an elevated ammonia level of unclear etiology. Oxcarbazepine can cause hyperammonemia. At the time of his discharge , his oxcarbazepine level was pending and this should be followed up as an outpatient. Additionally, the patient had mild rhabdomyolysis and received IV fluids. He should have a followup CK level. Please continue to encourage the patient to stop smoking and drinking alcohol, using recreational drugs. The patient has been asked to return to emergency room for any chest pain, shortness of breath. This is a summarized report of a complex medical history and hospital stay. For further details, please see the entire medical record. TIME SPENT: Time for this discharge was approximately 50 minutes, greater than half of that was spent with the patient discussing medications, discussing discharge plans and instructions. CONDITION ON DISCHARGE: Stable. Reviewed by JEOVANNY AGUILAR 12/04/17 1820 [id number]/[facility] #: [id number] SABRINA
== END 2017-12-01 15:25 | disposition home or self-care (01) ==
LOC: ED 13:05 → MED 15:15
PROVIDERS: ADMIT Internal Medicine; ATTEND Internal Medicine
DX: G40.909 Epilepsy, unspecified, not intractable, without status epilepticus (principal); Z91.14 Patient's other noncompliance with medication regimen; E87.2 Acidosis; N17.9 Acute kidney failure, unspecified; D72.829 Elevated white blood cell count, unspecified; M62.82 Rhabdomyolysis; E72.20 Disorder of urea cycle metabolism, unspecified; Z79.899 Other long term (current) drug therapy; Z59.0 Homelessness; F17.210 Nicotine dependence, cigarettes, uncomplicated
CPT/HCPCS: 36415; 70450; 70486; 72125; 80048; 80053; 80183; 80307; 80320; 80329; 81003; 81015; 82140; 82550; 82553; 82803; 83605; 83690; 83735; 83880; 84145; 84146; 84443; 84484; 85025; 85610; 85730; 86140; 87086; 93005; 96361; 96374; 99283; 99406; A9270-GY; G0378; G0480; J2405

== ENCOUNTER 2018-01-06 09:54 | Emergency (ER) | payer OTHER ==
[2018-01-06 10:32] LABS: ABS Basophils 0 10^3/ul (0-0.2); ABS Eosinophils 0 10^3/ul (0-0.6); ABS Lymphocytes 1.1 10^3/ul (1.0-4.8); ABS Monocytes 0.9 10^3/ul (0-0.8); ABS Neutrophils 8.8 10^3/ul (1.5-7.7); ABS Nucleated RBC 0 10^3/ul; Eosinophil % 0.1 % (0-6); Hematocrit 44 % (42-52); Hemoglobin 15.2 g/dl (14.0-18.0); Lymphocyte % 10.2 % (25-47); Mean Corpuscular HGB Conc 35 g/dl (31-36); Mean Corpuscular Hemoglobin 30 pg (27-31); Mean Corpuscular Volume 88 fL (80-94); Mean Platelet Volume 7.4 um3 (7.4-10.4); Nucleated Red Blood Cells % 0; Platelet Count 213 10^3/ul (150-450); Red Cell Distribution Width 14 % (10.5-15); White Blood Count 10.8 10^3/ul (3.5-10.8)
[2018-01-06 10:37] LABS: INR 0.95 (0.77-1.02)
--- NOTE | 2018-01-06 10:39 | RAD ---
INDICATION: Seizure. COMPARISON: Comparison is made with a prior chest x-ray study from June 22, 2017. TECHNIQUE: A portable view of the chest was obtained. FINDINGS: Cardiac and mediastinal contours appear to be within normal limits. The lungs are underinflated and clear. No pleural effusion is seen. IMPRESSION: NO EVIDENCE FOR ACUTE DISEASE.
[2018-01-06 10:49] LABS: EGFR Non-African American 90.3 (>60)
--- NOTE | 2018-01-06 10:58 | ED ---
Neurological HPI - HPI Summary HPI Summary: This patient is a 22 year old M BIBA to [facility] with a chief complaint of seizure like activity that that occurred and resolved PEDIATRICIAN/MEDICAL DOCTOR. The patient rates the pain 10 /10 in severity. Symptoms aggravated by nothing. Symptoms alleviated by nothing. Patient reports he has a history of seizure and is on medications for the condition. - History of Current Complaint Chief Complaint: EDSeizure Stated Complaint: SEIZURE Time Seen by Provider: 01/06/18 09:56 Hx Obtained From: Patient Onset/Duration: Sudden Onset, Started hours ago, Resolved Timing: Constant Onset Severity: Severe Current Severity: Severe Number of Seizures: 1 Pain Intensity: 10 Pain Scale Used: 0-10 Numeric Aggravating: Nothing Alleviating: Nothing Related Hx: Seizure - Additional Pertinent History Primary Care Physician: JUANCARLOS - Allergy/Home Medications Allergies/Adverse Reactions: Allergies Allergy/AdvReac Type Severity Reaction Status Date / Time Penicillins Allergy Rash Verified 01/06/18 10:12 PMH/Surg Hx/FS Hx/Imm Hx Previously Healthy: No Endocrine/Hematology History: Denies: Hx Anticoagulant Therapy Sensory History: Denies: Hx Contacts or Glasses, Hx Legally Blind, Hx Hearing Aid Opthamlomology History: Denies: Hx Contacts or Glasses, Hx Legally Blind Neurological History: Reports: Hx Seizures - Cancer History Cancer Type, Location and Year: H/O EPILEPSY - Surgical History Surgery Procedure, Year, and Place: Level 5 caveat: Surgical history unobtainable b/c pt is not answering questions - Immunization History Date of Influenza Vaccine: Fall 2016 Infectious Disease History: No Infectious Disease History: Denies: Traveled Outside the [place] in Last 30 Days - Family History Known Family History: Negative: Hypertension - Social History Occupation: Unemployed Lives: Alone Alcohol Use: Weekly Hx Substance Use: Yes Substance Use Type: Reports: Marijuana Substance Use Comment - Amount & Last Used: 01/04/18 Hx Tobacco Use: Yes Smoking Status (MU): Light Every Day Tobacco Smoker Type: Cigarettes Review of Systems Negative: Fever Neurological: Other - Positive seizure like activity All Other Systems Reviewed And Are Negative: Yes Physical Exam - Summary Physical Exam Summary: VITAL SIGNS: Reviewed. GENERAL: Patient is a well-developed and nourished male who is lying comfortable in the stretcher.Patient is not in any acute respiratory distress. HEAD AND FACE: No signs of trauma. No ecchymosis, hematomas or skull depressions. No sinus tenderness. EYES: PERRLA, EOMI x 2, No injected conjunctiva, no nystagmus. No photophobia. EARS: Hearing grossly intact. Ear canals and tympanic membranes are within normal limits. MOUTH: Oropharynx within normal limits. Cut/bitten tongue on the right side NECK: Supple, trachea is midline, no adenopathy, no JVD, no carotid bruit, no c- spine tenderness, neck with full ROM. No meningeal signs, no Kernig's or brudzinskis signs. CHEST: Symmetric, no tenderness at palpation LUNGS: Clear to auscultation bilaterally. No wheezing or crackles. CVS: Regular rate and rhythm, S1 and S2 present, no murmurs or gallops appreciated. ABDOMEN: Soft, non-tender. No signs of distention. No rebound no guarding, and no masses palpated. Bowel sounds are normal. EXTREMITIES: FROM in all major joints, no edema, no cyanosis or clubbing. NEURO: Alert and oriented x 3. No acute neurological deficits. Speech is normal and follows commands. SKIN: Dry and warm GCS: 15 Triage Information Reviewed: Yes Vital Signs On Initial Exam: Initial Vitals Temp Pulse Resp BP Pulse Ox 98.7 F 87 20 111/59 95 01/06/18 10:03 01/06/18 10:03 01/06/18 10:03 01/06/18 10:03 01/06/18 10:03 Vital Signs Reviewed: Yes Diagnostics - Vital Signs Vital Signs Temp Pulse Resp BP Pulse Ox 01/06/18 10:09 84 30 111/59 99 01/06/18 10:08 23 01/06/18 10:03 98.7 F 87 20 111/59 95 - Laboratory Lab Results: Lab Results 01/06/18 01/06/18 01/06/18 Range/Units 10:23 10:23 10:23 WBC 10.8 (3.5-10.8) 10^3/ul RBC 5.00 (4.00-5.40) 10^6/ul Hgb 15.2 (14.0-18.0) g/dl Hct 44 (42-52) % MCV 88 (80-94) fL MCH 30 (27-31) pg MCHC 35 (31-36) g/dl RDW 14 (10.5-15) % Plt Count 213 (150-450) 10^3/ul MPV 7.4 (7.4-10.4) um3 Neut % (Auto) 81.0 (38-83) % Lymph % (Auto) 10.2 L (25-47) % Foard % (Auto) 8.3 H (0-7) % Eos % (Auto) 0.1 (0-6) % Baso % (Auto) 0.4 (0-2) % Absolute Neuts (auto) 8.8 H (1.5-7.7) 10^3/ul Absolute Lymphs (auto) 1.1 (1.0-4.8) 10^3/ul Absolute Monos (auto) 0.9 H (0-0.8) 10^3/ul Absolute Eos (auto) 0 (0-0.6) 10^3/ul Absolute Basos (auto) 0 (0-0.2) 10^3/ul Absolute Nucleated RBC 0 10^3/ul Nucleated RBC % 0 INR (Anticoag Therapy) 0.95 (0.77-1.02) Sodium 139 (135-145) mmol/L Potassium 3.9 (3.5-5.0) mmol/L Chloride 107 (101-111) mmol/L Carbon Dioxide 21 L (22-32) mmol/L Anion Gap 11 (2-11) mmol/L BUN 9 (6-24) mg/dL Creatinine 1.03 (0.67-1.17) mg/dL Est GFR ( Amer) 109.3 (>60) Est GFR (Non-Af Amer) 90.3 (>60) BUN/Creatinine Ratio 8.7 (8-20) Glucose 94 (70-100) mg/dL Calcium 9.2 (8.6-10.3) mg/dL Magnesium 2.5 (1.9-2.7) mg/dL Total Bilirubin 0.30 (0.2-1.0) mg/dL AST 22 (13-39) U/L ALT 12 (7-52) U/L Alkaline Phosphatase 116 H (34-104) U/L Total Protein 7.3 (6.4-8.9) g/dL Albumin 4.3 (3.2-5.2) g/dL Globulin 3.0 (2-4) g/dL Albumin/Globulin Ratio 1.4 (1-3) TSH Pending Serum Alcohol Pending Result Diagrams: 01/06/18 10:23 01/06/18 10:23 Lab Statement: Any lab studies that have been ordered have been reviewed, and results considered in the medical decision making process. - Radiology EKG Radiology Interpretation Completed By: Radiologist - CXR reveals, per radiologist, no evidence for acute disease. ED physician has reviewed this radiology report. CXR Radiology Interpretation Completed By: Radiologist - CXR reveals, per radiologist, no evidence for acute disease. ED physician has reviewed this radiology report. - EKG 1056 Cardiac Rate: NL EKG Rhythm: Sinus Rhythm - 73 BPM EKG Interpretation: No ST elevation. EKG similar to previous taken on 2017. Course/Dx - Course Assessment/Plan: This patient is an 84-year-old male who presents to the emergency department with a chief complaint of having watery diarrhea for approximately one month. Patient reports that he has been taking over-the- counter medications Imodium with improvement of symptoms. Physical sounds without any significant abnormality except for lactic acid which is 4.4. This is consistent with the recent seizure. I discussed the findings and test results with Dr. Pierre and he recommends for the patient to be increased his Trileptal to 600 twice a day. Patient has been taking Trileptal 300 twice a day. Therefore the patient will be discharged home with follow-up with primary care physician. Patient was referred to see Dr. Pierre as an outpatient. Patient is hemodynamically stable alert and oriented 3. He was given 1 dose of 600 mg of Trileptal before the patient was discharged. - Differential Dx Differential Diagnoses Neuro: Positive: Seizure Disorder - Diagnoses Provider Diagnoses: Seizure - Physician Notifications Discussed Care Of Patient With: Jerod Pierre Time Discussed With Above Provider: 12:01 Instructed by Provider To: Other - Consult with Dr. Pierre (neurology) at 1201. He recommends patient be given 600 mg Trileptal, and that patient be discharged with 600 mg Trileptal BID. Discharge - Sign-Out/Discharge Documenting (check all that apply): Patient Departure - Discharge home - Discharge Plan Condition: Stable Disposition: HOME Prescriptions: OXcarbazepine TAB(*) [Trileptal 300 mg TAB(*)] 600 mg PO BID #110 tab Patient Education Materials: Oxcarbazepine (By mouth), Epilepsy (ED) Referrals: [facility] [place] PHYSICIAN REFERRAL [Outside] - 2 Days Additional Instructions: INCREASE YOUR DOSAGE OF OXCARBAZEPINE TO 600 MG TWICE A DAY. RETURN TO THE EMERGENCY DEPARTMENT FOR NEW OR WORSENING SYMPTOMS - Billing Disposition and Condition Condition: STABLE Disposition: Home Attestations Scribe Attestation: This is richard Phillips documenting for attending Jose Kang MD. User Type: Provider with Scribe Provider Attestation: The documentation recorded by the scribe accurately reflects the service I personally performed and the decisions made by me.
[2018-01-06] MEDS ORDERED: OXcarbazepine TAB(*) 300 MG PO ONE (12:05)
[2018-01-06 13:43] VITALS: BP 117/71
== END 2018-01-06 13:43 | disposition home or self-care (01) ==
LOC: ED 09:54
DX: G40.909 Epilepsy, unspecified, not intractable, without status epilepticus (principal); F17.210 Nicotine dependence, cigarettes, uncomplicated; Z88.0 Allergy status to penicillin
CPT/HCPCS: 36415; 71045; 80053; 80320; 83605; 83735; 84443; 85025; 85610; 93005; 99283; A9270-GY; G0480

== ENCOUNTER 2018-01-15 12:38 | Emergency (ER) | payer OTHER ==
[2018-01-15] MEDS ORDERED: NS 0.9% 1000 ML* 1,000 ML IV ONE (12:55)
--- NOTE | 2018-01-15 13:09 | ED ---
Neurological HPI - HPI Summary HPI Summary: Pt is a 22 y/o male BIBA who presents to [facility] s/p seizure. He c/o N/V after using methamphetamine yesterday and possibly K2 today. [place] EMS states they did not find any evidence for head trauma, and pt was given Zofran and Narcan. He c/o neck pain, 6/10 sharp esophageal pain due to vomiting, and states he cant feel anything. Pt denies using alcohol, and is unsure how often he uses drugs. He has a PMHx of epilepsy and is on medication for it. - History of Current Complaint Chief Complaint: EDGeneral Stated Complaint: GENERAL ILLNESS Time Seen by Provider: 01/15/18 12:50 Hx Obtained From: Patient, EMS Onset/Duration: Gradual Onset, Still Present Timing: Constant Current Severity: Moderate - 6/10 sharp pain Pain Intensity: 6 Pain Scale Used: 0-10 Numeric Character: Numbness/Tingling Aggravating: Alcohol/Drug Ingestion - Meth, K2 Alleviating: Nothing Related Hx: Alcohol/Drug Abuse, Seizure - Additional Pertinent History Primary Care Physician: JUANCARLOS - Allergy/Home Medications Allergies/Adverse Reactions: Allergies Allergy/AdvReac Type Severity Reaction Status Date / Time Penicillins Allergy Rash Verified 01/15/18 12:44 PMH/Surg Hx/FS Hx/Imm Hx Endocrine/Hematology History: Denies: Hx Anticoagulant Therapy, Hx Diabetes Cardiovascular History: Denies: Hx Hypertension Sensory History: Denies: Hx Contacts or Glasses, Hx Legally Blind, Hx Hearing Aid Opthamlomology History: Denies: Hx Contacts or Glasses, Hx Legally Blind Neurological History: Reports: Hx Seizures - Cancer History Cancer Type, Location and Year: H/O EPILEPSY - Surgical History Surgery Procedure, Year, and Place: Level 5 caveat: Surgical history unobtainable b/c pt is not answering questions - Immunization History Date of Influenza Vaccine: Fall 2016 Immunizations Up to Date: Yes Infectious Disease History: No Infectious Disease History: Denies: Traveled Outside the [place] in Last 30 Days - Family History Known Family History: Negative: Hypertension - Social History Alcohol Use: Weekly Hx Substance Use: Yes Substance Use Type: Reports: Marijuana Substance Use Comment - Amount & Last Used: 01/04/18, K2 & Meth Hx Tobacco Use: Yes Smoking Status (MU): Light Every Day Tobacco Smoker Type: Cigarettes Review of Systems Positive: Sore Throat - Due to vomiting Positive: Vomiting, Nausea Positive: Other - Neck pain Neurological: Other - Seizure Positive: Numbness - "can't feel anything" All Other Systems Reviewed And Are Negative: Yes Physical Exam - Summary Physical Exam Summary: GENERAL: Patient is a well developed and nourished M who is lying comfortable in the stretcher. Patient is not in any acute respiratory distress. HEAD AND FACE: Normocephalic EYES: PERRLA, EOMI x 2. EARS: Hearing grossly intact. MOUTH: Oropharynx within normal limits. NECK: Supple, trachea is midline, no adenopathy, no JVD, no carotid bruit. Tenderness of cervical spine area. CHEST: Symmetric, no tenderness at palpation LUNGS: Clear to auscultation bilaterally. No wheezing or crackles. CVS: Regular rate and rhythm, S1 and S2 present, no murmurs or gallops appreciated. ABDOMEN: Soft, non-tender. Bowel sounds are normal. No abdominal abnormal pulsations. EXTREMITIES: Full ROM in all major joints, no edema, no cyanosis or clubbing. NEURO: No acute neurological deficits. Speech is normal and follows commands. SKIN: Dry and warm GCS: 14 Triage Information Reviewed: Yes Vital Signs On Initial Exam: Initial Vitals Temp Pulse Resp BP Pulse Ox 99.6 F 84 16 143/85 100 01/15/18 12:40 01/15/18 12:40 01/15/18 12:40 01/15/18 12:40 01/15/18 12:40 Vital Signs Reviewed: Yes Diagnostics - Vital Signs Vital Signs Temp Pulse Resp BP Pulse Ox 01/15/18 12:40 99.6 F 84 16 143/85 100 - Laboratory Result Diagrams: 01/15/18 13:43 01/15/18 13:43 Lab Statement: Any lab studies that have been ordered have been reviewed, and results considered in the medical decision making process. - CT Cervical Spine CT CT Interpretation: No Acute Changes - No fracture of the cervical spine is noted. ED physician reviewed radiology report. CT Interpretation Completed By: Radiologist Brain CT CT Interpretation: No Acute Changes - 1. NO ACUTE INTRACRANIAL PATHOLOGY. 2. STABLE LEFT CEREBRAL ENCEPHALOMALACIA. ED physician reviewed radiology report. CT Interpretation Completed By: Radiologist Re-Evaluation - Re-Evaluation First Eval Re-Evaluation Time: 16:17 Change: Worse Comment: Pt is feeling nauseated. Course/Dx - Course Course Of Treatment: Pt is a 22 y/o male BIBA who presents to [facility] s/p seizure. He c/o N/V after using methamphetamine yesterday and possibly K2 today. [place] EMS states they did not find any evidence for head trauma, and pt was given Zofran and Narcan. He c/o neck pain, 6/10 sharp esophageal pain due to vomiting, and states he cant feel anything. Pt denies using alcohol, and is unsure how often he uses drugs. He has a PMHx of epilepsy and is on medication for it. A physical exam revealed Tenderness of cervical spine area and GCS of 14. A cervical spine and brain CT were negative. Final dx is substance abuse. I discussed results with patient and he agrees with this plan. He is hemodynamically stable upon discharge. Strict return precautions given and she will otherwise follow up with her PCP. - Diagnoses Provider Diagnoses: Substance abuse Discharge - Sign-Out/Discharge Documenting (check all that apply): Patient Departure - Discharge - Discharge Plan Condition: Stable Disposition: HOME Patient Education Materials: Methamphetamine Abuse (ED) Referrals: [facility]YS[facility]IAN REFERRAL [Outside] - 3 Days Additional Instructions: RETURN TO THE EMERGENCY DEPARTMENT FOR CHANGING OR WORSENING SYMPTOMS. - Billing Disposition and Condition Condition: STABLE Disposition: Home - Attestation Statements Document Initiated by Scribe: Yes Documenting Scribe: Cecelia Peterson Provider For Whom Luisibe is Documenting (Include Credential): Susannah Colón MD Scribe Attestation: Cecelia Santos scribed for Susannah Colón MD on 01/19/18 at 1348. Scribe Documentation Reviewed: Yes Provider Attestation: The documentation as recorded by the Cecelia ramos accurately reflects the service I personally performed and the decisions made by me, Susannah Colón MD
--- NOTE | 2018-01-15 14:03 | RAD ---
HISTORY: injury COMPARISONS: November 30, 2017 TECHNIQUE: Multiple contiguous axial CT scans were obtained of the head without intravenous contrast. FINDINGS: HEMORRHAGE/INFARCT: There is no hemorrhage or acute infarct. MASSES/SHIFT: There is no mass or shift. EXTRA-AXIAL SPACES: There are no extra-axial fluid collections. SULCI AND VENTRICLES: The sulci and ventricles are normal in size and position for the patient's stated age. CEREBRUM: There is stable encephalomalacia of the left temporoparietal region. BRAINSTEM: There are no focal parenchymal abnormalities. CEREBELLUM: There are no focal parenchymal abnormalities. VESSELS: The vessels are grossly normal. PARANASAL SINUSES: The paranasal sinuses are clear. ORBITS: The orbits are unremarkable. BONES AND SOFT TISSUE: No bone or soft tissue abnormalities are noted. OTHER: None IMPRESSION: 1. NO ACUTE INTRACRANIAL PATHOLOGY. 2. STABLE LEFT CEREBRAL ENCEPHALOMALACIA
--- NOTE | 2018-01-15 14:24 | RAD ---
Indication: Neck injury. CT of the cervical spine was obtained. Sagittal and coronal reconstructed images were obtained. The skull base demonstrates no evidence of fracture. Mastoid air cells are unremarkable. The C1 ring is intact. The vertebral bodies appear normal in height. Disc spaces all well-preserved. There is no fracture of the cervical spine noted. No canal appears to be intact. Intervertebral foramen appear patent. Lung apices are otherwise unremarkable. IMPRESSION: No fracture of the cervical spine is noted.
[2018-01-15 14:32] LABS: ABS Basophils 0 10^3/ul (0-0.2); ABS Eosinophils 0 10^3/ul (0-0.6); ABS Lymphocytes 1.9 10^3/ul (1.0-4.8); ABS Monocytes 0.9 10^3/ul (0-0.8); ABS Neutrophils 4.3 10^3/ul (1.5-7.7); ABS Nucleated RBC 0 10^3/ul; Eosinophil % 0.6 % (0-6); Hematocrit 42 % (42-52); Hemoglobin 14.5 g/dl (14.0-18.0); Lymphocyte % 26.5 % (25-47); Mean Corpuscular HGB Conc 34 g/dl (31-36); Mean Corpuscular Hemoglobin 30 pg (27-31); Mean Corpuscular Volume 88 fL (80-94); Mean Platelet Volume 7.8 um3 (7.4-10.4); Nucleated Red Blood Cells % 0; Platelet Count 218 10^3/ul (150-450); Red Blood Count 4.81 10^6/ul (4.00-5.40); Red Cell Distribution Width 14 % (10.5-15); White Blood Count 7.2 10^3/ul (3.5-10.8)
[2018-01-15 14:53] LABS: EGFR Non-African American 128.3 (>60)
[2018-01-15 15:48] LABS: Urine Appearance Clear; Urine Blood 1+ (Negative); Urine Color Straw; Urine Ketones Trace (Negative); Urine Protein Negative (Negative); Urine Red Blood Cell Trace(0-2/hpf) (Absent); Urine Specific Gravity 1.004 (1.010-1.030); Urine Urobilinogen Negative (Negative); Urine White Blood Cell Absent (Absent)
[2018-01-15] MEDS ORDERED: Ondansetron INJ* 2 MG/ML VIAL IV ONE (16:22)
[2018-01-15 17:42] VITALS: BP 122/76
== END 2018-01-15 17:48 | disposition home or self-care (01) ==
LOC: ED 12:38
DX: F19.10 Other psychoactive substance abuse, uncomplicated (principal); J02.9 Acute pharyngitis, unspecified; R11.2 Nausea with vomiting, unspecified; M54.2 Cervicalgia; F17.210 Nicotine dependence, cigarettes, uncomplicated
CPT/HCPCS: 36415; 70450; 72125; 80053; 80307; 80320; 80329; 81003; 81015; 83605; 85025; 86703; 99282; G0480

== ENCOUNTER 2018-01-17 13:10 | Emergency (ER) | payer OTHER ==
--- NOTE | 2018-01-17 14:26 | RAD ---
HISTORY: AMS COMPARISONS: January 15, 2018 TECHNIQUE: Multiple contiguous axial CT scans were obtained of the head without intravenous contrast. FINDINGS: HEMORRHAGE/INFARCT: There is no hemorrhage or acute infarct. MASSES/SHIFT: There is no mass or shift. EXTRA-AXIAL SPACES: There are no extra-axial fluid collections. SULCI AND VENTRICLES: The sulci and ventricles are normal in size and position for the patient's stated age. CEREBRUM: There is stable encephalomalacia of the left temporoparietal region. BRAINSTEM: There are no focal parenchymal abnormalities. CEREBELLUM: There are no focal parenchymal abnormalities. VESSELS: The vessels are grossly normal. PARANASAL SINUSES: The paranasal sinuses are clear. ORBITS: The orbits are unremarkable. BONES AND SOFT TISSUE: No bone or soft tissue abnormalities are noted. OTHER: None IMPRESSION: NO ACUTE INTRACRANIAL PATHOLOGY. STABLE LEFT TEMPORAL-PARIETAL ENCEPHALOMALACIA
[2018-01-17 14:41] LABS: ABS Basophils 0 10^3/ul (0-0.2); ABS Eosinophils 0.1 10^3/ul (0-0.6); ABS Lymphocytes 2.1 10^3/ul (1.0-4.8); ABS Monocytes 0.7 10^3/ul (0-0.8); ABS Neutrophils 4.3 10^3/ul (1.5-7.7); ABS Nucleated RBC 0 10^3/ul; Hematocrit 42 % (42-52); Hemoglobin 14.6 g/dl (14.0-18.0); Lymphocyte % 29.2 % (25-47); Mean Corpuscular HGB Conc 35 g/dl (31-36); Mean Corpuscular Hemoglobin 30 pg (27-31); Mean Corpuscular Volume 87 fL (80-94); Mean Platelet Volume 7.4 um3 (7.4-10.4); Nucleated Red Blood Cells % 0; Platelet Count 195 10^3/ul (150-450); Red Blood Count 4.82 10^6/ul (4.00-5.40); Red Cell Distribution Width 14 % (10.5-15); White Blood Count 7.2 10^3/ul (3.5-10.8)
[2018-01-17 14:53] LABS: EGFR Non-African American 111.2 (>60)
--- NOTE | 2018-01-17 14:54 | ED ---
Shortness of Breath - HPI Summary HPI Summary: The patient is a 22 y/o M presenting to [facility] with a chief complaint of SOB and neck fogginess starting two days ago. Right before time of onset, pt had Narcan at [facility] and was discharged home. The pain is not aggravated or alleviated by anything. He states that he hasn't been able to sleep for the last two days. He takes Oxcarbazepine, but hasn't taken the medication in a few weeks because he lost the prescription. - History of Current Complaint Chief Complaint: EDGeneral Time Seen by Provider: 01/17/18 13:36 Hx Obtained From: Patient Onset/Duration: Sudden Onset, Lasting Days, Still Present Timing: Constant Current Severity: Moderate Alleviating Factors: Nothing - Allergy/Home Medications Allergies/Adverse Reactions: Allergies Allergy/AdvReac Type Severity Reaction Status Date / Time Penicillins Allergy Rash Verified 01/15/18 12:44 PMH/Surg Hx/FS Hx/Imm Hx Endocrine/Hematology History: Denies: Hx Anticoagulant Therapy, Hx Diabetes Cardiovascular History: Denies: Hx Hypertension Sensory History: Denies: Hx Contacts or Glasses, Hx Legally Blind, Hx Hearing Aid Opthamlomology History: Denies: Hx Contacts or Glasses, Hx Legally Blind Neurological History: Reports: Hx Seizures - Cancer History Cancer Type, Location and Year: H/O EPILEPSY - Surgical History Surgery Procedure, Year, and Place: Level 5 caveat: Surgical history unobtainable b/c pt is not answering questions - Immunization History Date of Influenza Vaccine: Fall 2016 Immunizations Up to Date: Unable to Obtain/Confirm Infectious Disease History: No Infectious Disease History: Denies: Traveled Outside the [place] in Last 30 Days - Family History Known Family History: Negative: Hypertension - Social History Alcohol Use: Weekly Hx Substance Use: Yes Substance Use Type: Reports: Marijuana Substance Use Comment - Amount & Last Used: 01/04/18, K2 & Meth Hx Tobacco Use: Yes Smoking Status (MU): Light Every Day Tobacco Smoker Type: Cigarettes Review of Systems Positive: Sore Throat - throat fogginess All Other Systems Reviewed And Are Negative: Yes Physical Exam - Summary Physical Exam Summary: Constitutional: Well-developed, Well-nourished, Alert. (-) Distressed Skin: Warm, Dry HENT: Normocephalic; Atraumatic Eyes: Conjunctiva normal Neck: Musculoskeletal ROM normal neck. (-) JVD, (-) Stridor, (-) Tracheal deviation Cardio: Rhythm regular, rate normal, Heart sounds normal; Intact distal pulses; The pedal pulses are 2+ and symmetric. Radial pulses are 2+ and symmetric. (-) Murmur Pulmonary/Chest wall: Effort normal. (-) Respiratory distress, (-) Wheezes, (-) Rales Abd: Soft, (-) epigastric tenderness, (-) Distension, (-) Guarding, (-) Rebound Musculoskeletal: (-) Edema Lymph: (-) Cervical adenopathy Neuro: Alert, Oriented x3 Psych: Mood and affect Normal Triage Information Reviewed: Yes Vital Signs On Initial Exam: Initial Vitals Temp Pulse Resp BP Pulse Ox 98.6 F 113 18 134/80 96 01/17/18 13:15 01/17/18 13:15 01/17/18 13:15 01/17/18 13:15 01/17/18 13:15 Vital Signs Reviewed: Yes Diagnostics - Vital Signs Vital Signs Temp Pulse Resp BP Pulse Ox 01/17/18 13:15 98.6 F 113 18 134/80 96 - Laboratory Lab Results: Lab Results 01/17/18 Range/Units 14:28 WBC 7.2 (3.5-10.8) 10^3/ul RBC 4.82 (4.00-5.40) 10^6/ul Hgb 14.6 (14.0-18.0) g/dl Hct 42 (42-52) % MCV 87 (80-94) fL MCH 30 (27-31) pg MCHC 35 (31-36) g/dl RDW 14 (10.5-15) % Plt Count 195 (150-450) 10^3/ul MPV 7.4 (7.4-10.4) um3 Neut % (Auto) 59.9 (38-83) % Lymph % (Auto) 29.2 (25-47) % Jennings % (Auto) 9.4 H (0-7) % Eos % (Auto) 1.0 (0-6) % Baso % (Auto) 0.5 (0-2) % Absolute Neuts (auto) 4.3 (1.5-7.7) 10^3/ul Absolute Lymphs (auto) 2.1 (1.0-4.8) 10^3/ul Absolute Monos (auto) 0.7 (0-0.8) 10^3/ul Absolute Eos (auto) 0.1 (0-0.6) 10^3/ul Absolute Basos (auto) 0 (0-0.2) 10^3/ul Absolute Nucleated RBC 0 10^3/ul Nucleated RBC % 0 Result Diagrams: 01/17/18 14:28 01/17/18 14:28 Lab Statement: Any lab studies that have been ordered have been reviewed, and results considered in the medical decision making process. - CT Brain CT CT Interpretation: No Acute Changes - No acute intracranial pathology. Stable left temporal-parietal encephalomalacia. ED physician has reviewed this report. CT Interpretation Completed By: Radiologist Re-Evaluation - Re-Evaluation First Eval Re-Evaluation Time: 18:05 Change: Unchanged Comment: Patient is sleepy but unresponsive. Course/Dx - Course Course Of Treatment: The patient is a 22 y/o M presenting to [facility] with a chief complaint of SOB and neck fogginess starting two days ago. Right before time of onset, pt had Narcan at [facility] and was discharged home. The pain is not aggravated or alleviated by anything. He states that he hasn't been able to sleep for the last two days. He takes Oxcarbazepine, but hasn't taken the medication in a few weeks because he lost the prescription. In the ED course, Brain CT is negative. Patient will be a sign-out to Dr. Bedoya at shift change pending disposition after [facility]. Discharge - Sign-Out/Discharge Documenting (check all that apply): Sign-Out Patient - Patient will be a sign- out to Dr. Bedoya at shift change pending disposition after [facility]HU. Signing out patient TO: Baudilio Bedoya - Discharge Plan Prescriptions: Ondansetron ODT TAB* [Zofran 4 MG Odt TAB*] 4 mg PO Q8H PRN #4 tab.odt PRN Reason: Nausea/Vomiting Referrals: No Primary Care Phys,NOPCP [Primary Care Provider] - [facility] [place]Outside] Additional Instructions: RETURN TO THE EMERGENCY DEPARTMENT FOR ANY NEW OR WORSENING SYMPTOMS. - Attestation Statements Document Initiated by Scribe: Yes Documenting Scribe: Nichole Humphreys Provider For Whom Scribe is Documenting (Include Credential): Brda Jewell MD Scribe Attestation: I, Nichole Humphreys, scribed for Brad Jewell MD on 01/17/18 at 1913. Scribe Documentation Reviewed: Yes Provider Attestation: The documentation as recorded by the scribe, Nichole Humphreys accurately reflects the service I personally performed and the decisions made by me, Brad Jewell MD
[2018-01-17 15:59] LABS: Urine Appearance Clear; Urine Blood 1+ (Negative); Urine Color Yellow; Urine Ketones Negative (Negative); Urine Protein Negative (Negative); Urine Red Blood Cell 1+(3-5/hpf) (Absent); Urine Urobilinogen Negative (Negative); Urine White Blood Cell Trace(0-5/hpf) (Absent)
--- NOTE | 2018-01-18 06:51 | ED ---
Progress - Progress Note Progress Note: No acute changes from 7pm on 01/17 to 7am on 01/18. ED physician has reviewed this report Re-Evaluation - Re-Evaluation First Eval Re-Evaluation Time: 18:05 Change: Unchanged Comment: Patient is sleepy but unresponsive. Course/Dx - Course Course Of Treatment: The patient is a 22 y/o M presenting to [facility] with a chief complaint of SOB and neck fogginess starting two days ago. Right before time of onset, pt had Narcan at [facility] and was discharged home. The pain is not aggravated or alleviated by anything. He states that he hasn't been able to sleep for the last two days. He takes Oxcarbazepine, but hasn't taken the medication in a few weeks because he lost the prescription. In the ED course, Brain CT is negative. Patient will be a sign-out to Dr. Bedoya at shift change pending disposition after MHU. Discharge - Discharge Plan Condition: Stable Disposition: HOME Prescriptions: Ondansetron ODT TAB* [Zofran 4 MG Odt TAB*] 4 mg PO Q8H PRN #4 tab.odt PRN Reason: Nausea/Vomiting Referrals: [facility] [Outside] No Primary Care Phys,NOPCP [Primary Care Provider] - Additional Instructions: RETURN TO THE EMERGENCY DEPARTMENT FOR ANY NEW OR WORSENING SYMPTOMS. - Attestation Statements Document Initiated by Scribe: Yes
--- NOTE | 2018-01-18 07:10 | ED ---
Progress - Progress Note Progress Note: No acute changes from 7pm on 01/17 to 7am on 01/18. ED physician has reviewed this report Re-Evaluation - Re-Evaluation First Eval Re-Evaluation Time: 18:05 Change: Unchanged Comment: Patient is sleepy but unresponsive. Course/Dx - Course Course Of Treatment: The patient is a 22 y/o M presenting to [facility] with a chief complaint of SOB and neck fogginess starting two days ago. Right before time of onset, pt had Narcan at [facility] and was discharged home. The pain is not aggravated or alleviated by anything. He states that he hasn't been able to sleep for the last two days. He takes Oxcarbazepine, but hasn't taken the medication in a few weeks because he lost the prescription. In the ED course, Brain CT is negative. Patient will be a sign-out to Dr. Bedoya at shift change pending disposition after MHU. - Diagnoses Provider Diagnoses: Adjustment disorder - Provider Notifications Discussed Care Of Patient With: Ever Taylor Time Discussed With Above Provider: 10:15 Instructed by Provider To: Other - Per ONOFRE Morris, recommends discharge with dx adjustment disorder. Discharge - Sign-Out/Discharge Documenting (check all that apply): Patient Departure - discharge - Discharge Plan Condition: Stable Disposition: HOME Prescriptions: Ondansetron ODT TAB* [Zofran 4 MG Odt TAB*] 4 mg PO Q8H PRN #4 tab.odt PRN Reason: Nausea/Vomiting Referrals: [facility] [place] [facility]FERR[facility] [Outside] No Primary Care Phys,NOPCP [Primary Care Provider] - Additional Instructions: RETURN TO THE EMERGENCY DEPARTMENT FOR ANY NEW OR WORSENING SYMPTOMS. - Attestation Statements Document Initiated by Scribe: Yes Documenting Scribe: Jony Shore Provider For Whom Luisibscar is Documenting (Include Credential): Dr. Dano Urias MD Scribe Attestation: Jony Santos scribed for Dr. Dano Urias MD on 01/18/18 at 1022.
[2018-01-18] MEDS ORDERED: OXcarbazepine TAB(*) 300 MG PO SCH (09:00)
[2018-01-18 11:15] VITALS: BP 156/91
== END 2018-01-18 10:31 | disposition home or self-care (01) ==
LOC: ED 13:10
DX: F43.20 Adjustment disorder, unspecified (principal); J02.9 Acute pharyngitis, unspecified; Z88.0 Allergy status to penicillin; F17.210 Nicotine dependence, cigarettes, uncomplicated
CPT/HCPCS: 36415; 70450; 80053; 80307; 80320; 80329; 81003; 81015; 84443; 85025; 87086; 93005; 99285; A9270-GY; G0480

== ENCOUNTER 2018-02-28 13:54 | Emergency (ER) | payer MEDICAID, OTHER ==
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
[2018-02-28 14:16] LABS: ABS Basophils 0 10^3/ul (0-0.2); ABS Eosinophils 0 10^3/ul (0-0.6); ABS Lymphocytes 2.1 10^3/ul (1.0-4.8); ABS Monocytes 0.7 10^3/ul (0-0.8); ABS Neutrophils 5.4 10^3/ul (1.5-7.7); ABS Nucleated RBC 0 10^3/ul; Eosinophil % 0.5 % (0-6); Hematocrit 45 % (42-52); Hemoglobin 15.5 g/dl (14.0-18.0); Lymphocyte % 25.4 % (25-47); Mean Corpuscular HGB Conc 35 g/dl (31-36); Mean Corpuscular Hemoglobin 31 pg (27-31); Mean Corpuscular Volume 89 fL (80-94); Mean Platelet Volume 7.4 um3 (7.4-10.4); Nucleated Red Blood Cells % 0.1; Platelet Count 212 10^3/ul (150-450); Red Blood Count 5.07 10^6/ul (4.00-5.40); Red Cell Distribution Width 14 % (10.5-15); White Blood Count 8.4 10^3/ul (3.5-10.8)
[2018-02-28 14:23] LABS: INR 0.99 (0.77-1.02)
--- NOTE | 2018-02-28 14:34 | RAD ---
HISTORY: Seizure COMPARISONS: January 06, 2018 VIEWS: 1: frontal AP view of the chest at 2:25 PM FINDINGS: LINES AND TUBES: None. CARDIOMEDIASTINAL SILHOUETTE: The cardiomediastinal silhouette is normal for portable technique. PLEURA: The costophrenic angles are sharp. No pleural abnormalities are noted. LUNG PARENCHYMA: The lungs are clear. ABDOMEN: The upper abdomen is clear. There is no subphrenic gas. BONES AND SOFT TISSUES: No bone or soft tissue abnormalities are noted. IMPRESSION: NO ACTIVE CARDIOPULMONARY DISEASE.
[2018-02-28 14:38] LABS: EGFR Non-African American 130.2 (>60)
[2018-02-28] MEDS ORDERED: NS 0.9% 1000 ML* 2,000 ML IV ONE (15:03)
[2018-02-28] MEDS ORDERED: Potassium Chlor TAB* 20 MEQ TAB.ER PO ONE (15:03)
[2018-02-28 16:47] LABS: Urine Appearance Clear; Urine Color Yellow; Urine Ketones Negative (Negative); Urine Specific Gravity 1.015 (1.010-1.030); Urine Urobilinogen Negative (Negative)
[2018-02-28 16:48] LABS: Urine Blood Negative (Negative); Urine Protein 1+(30 mg/dL) (Negative)
[2018-02-28 19:11] VITALS: BP 113/64
== END 2018-02-28 19:16 | disposition home or self-care (01) ==
LOC: ED 13:54
DX: G40.909 Epilepsy, unspecified, not intractable, without status epilepticus (principal); Z91.138 Patient's unintentional underdosing of medication regimen for other reason; F17.210 Nicotine dependence, cigarettes, uncomplicated; Z59.0 Homelessness; Z88.0 Allergy status to penicillin
CPT/HCPCS: 36415; 71045; 80053; 80183; 80307; 80320; 81003; 81015; 82550; 83605; 83735; 84443; 85025; 85610; 93005; 96374; 99283; A9270-GY; G0480

== ENCOUNTER 2018-04-02 15:32 | Emergency (ER) | payer OTHER ==
--- NOTE | 2018-04-02 15:47 | ED ---
HPI Chest Pain - HPI Summary HPI Summary: The pt is a 22 y/o male with a Mhx of seizures brought in by ambulance to [facility] c/o since today morning. He ran out of his seizure medications 2 days ago and when he resumed taking it today, he felt off. He notes SOB, slurred speech and several seizures at home. He denies cough. The seizures re unwitnessed because the pt lives alone in [place]. - History of Current Complaint Chief Complaint: EDSeizure Time Seen by Provider: 04/02/18 15:35 Hx Obtained From: Patient Onset/Duration: Started Hours Ago, Still Present Timing: Constant Current Severity: None Pain Intensity: 0 Pain Scale Used: 0-10 Numeric Chest Pain Location: Left Lateral Chest Pain Radiates: No Character: Dyspnea at Rest Aggravating Factor(s): Nothing Associated Signs and Symptoms: Positive: Shortness of Breath, Other: - Slurred speech - Additional Pertinent History Primary Care Physician: JUANCARLOS - Allergy/Home Medications Allergies/Adverse Reactions: Allergies Allergy/AdvReac Type Severity Reaction Status Date / Time Penicillins Allergy Rash Verified 02/28/18 14:17 Home Medications: Home Medications Albuterol HFA INHALER* [Ventolin HFA Inhaler*] 2 puff INH Q6H PRN 04/02/18 [ History Confirmed 04/02/18] levETIRAcetam TAB* [Keppra TAB*] 500 mg PO BID 04/02/18 [History Confirmed 04/02] PMH/Surg Hx/FS Hx/Imm Hx Previously Healthy: No Endocrine/Hematology History: Denies: Hx Anticoagulant Therapy, Hx Diabetes Cardiovascular History: Denies: Hx Hypertension Sensory History: Denies: Hx Contacts or Glasses, Hx Legally Blind, Hx Hearing Aid Opthamlomology History: Denies: Hx Contacts or Glasses, Hx Legally Blind Neurological History: Reports: Hx Seizures Psychiatric History: Denies: Hx Eating Disorder - Cancer History Cancer Type, Location and Year: None reported - Surgical History Surgery Procedure, Year, and Place: none - Immunization History Date of Influenza Vaccine: Fall 2016 Infectious Disease History: No Infectious Disease History: Denies: Traveled Outside the [place] in Last 30 Days - Family History Known Family History: Negative: Cardiac Disease, Hypertension - Social History Occupation: Unemployed Lives: Alone Alcohol Use: Weekly Hx Substance Use: Yes Substance Use Type: Reports: Marijuana Substance Use Comment - Amount & Last Used: 01/04/18, K2 & Meth// 04/02/18: DENIES Hx Tobacco Use: Yes Smoking Status (MU): Light Every Day Tobacco Smoker Type: Cigarettes Review of Systems Positive: Chest Pain Respiratory: Other - Positive: Dyspnea Positive: Shortness Of Breath. Negative: Cough Neurological: Other - Positive: Multipel seizures in the last 1-2 weeks Positive: Slurred Speech All Other Systems Reviewed And Are Negative: Yes Physical Exam - Summary Physical Exam Summary: Appearance: Well-appearing, Well-nourished, lying in bed comfortably Skin: Warm, dry, no obvious rash Eyes: sclera anicteric, no conjunctival pallor ENT: mucous membranes moist, pharynx appears normal Neck: Supple, nontender Respiratory: Clear to auscultation, no signs of respiratory distress Cardiovascular: Normal S1, S2. No murmurs. Normal distal pulses in tibial and radial bilaterally. Abdomen: Soft, nontender, normal active bowel sounds present Musculoskeletal: Normal, Strength/ROM Intact, Motor function in all 4 extremities is normal and symmetric. There is no rigidity or tremor noted. Neurological: A&Ox3, awake and alert, mentation is normal, spt is slow to respond, Level of consciousness nml. The patient is alert and oriented. Cranial nerves are grossly intact. Gaze is conjugate and without nystagmus. Peripheral vision is intact to confrontation. There are no gross sensory abnormalities to light touch. There is no truncal or fine motor ataxia. Gait is normal. Psychiatric: Sluggish affect, does not appear anxious or depressed GCS:15 Triage Information Reviewed: Yes Vital Signs On Initial Exam: Initial Vitals Temp Pulse Resp BP Pulse Ox 99.8 F 91 16 130/79 98 04/02/18 15:32 04/02/18 15:32 04/02/18 15:32 04/02/18 15:32 04/02/18 15:32 Vital Signs Reviewed: Yes Diagnostics - Vital Signs Vital Signs Temp Pulse Resp BP Pulse Ox 04/02/18 15:32 99.8 F 91 16 130/79 98 - Laboratory Result Diagrams: 04/02/18 16:01 04/02/18 16:01 Lab Statement: Any lab studies that have been ordered have been reviewed, and results considered in the medical decision making process. - Radiology CP Radiology Interpretation Completed By: Radiologist - IMPRESSION: LOW LUNG VOLUMES, SMALL BIBASILAR INFILTRATES. The ED physician reviewed this radiology report. - EKG 15:51 Cardiac Rate: NL - 81 bpm EKG Rhythm: Sinus Rhythm Summary of EKG Findings: ST elevation, probable normal early repolarization pattern. Chest Pain Course/Dx - Course Course Of Treatment: This is a 22-year-old man who claims to have chest pain. However, he called EMS because of concern over possible seizures because he was recently off his seizure medicines, and his affect is very suggestive of drug ingestion. He denies any substance use, but review his chart documents many episodes of taking many different substances including ecstasy, marijuana, T2, and perhaps opioids. He claims to live in an apartment in [place], but on prior visits he was noted to be [place], [place] [facility]. His history keeps changing from EMS to the nurse to me. I'll get some screening labs, a chest x-ray, and a tox screen, but his physical exam and history are not suggestive of any acute medical problem. The pt will be discharged with a final dx of seizures and PNA. - Diagnoses Provider Diagnoses: Seizures, PNA (pneumonia) Discharge - Discharge Plan Condition: Good Disposition: HOME Prescriptions: Azithromycin TAB* [Zithromax TAB (Z-VINH) 250 mg #6 tabs] 250 mg PO DAILY #4 tab Patient Education Materials: Recurrent Seizures in Adults (ED), Pneumonia (ED) Referrals: [facility] [Outside] Additional Instructions: Your blood work looks ok. Make sure to take your seizure medication as directed. Your chest x ray suggests you may have infection in the lungs, so I have prescribed an antibiotic for that. Avoid any street drugs, many of these can contribute to seizures. - Attestation Statements Document Initiated by Scribe: Yes Documenting Scribe: Jerica Lockhart Provider For Whom Scribe is Documenting (Include Credential): Dr. Baudilio Bedoya MD Scribe Attestation: Jerica Santos, scribed for Dr. Baudilio Bedoya MD on 04/02/18 at 1856.
[2018-04-02 16:27] LABS: ABS Basophils 0.1 10^3/ul (0-0.2); ABS Eosinophils 0.1 10^3/ul (0-0.6); ABS Monocytes 0.9 10^3/ul (0-0.8); ABS Neutrophils 5.6 10^3/ul (1.5-7.7); ABS Nucleated RBC 0 10^3/ul; Eosinophil % 1.3 % (0-6); Hematocrit 42 % (42-52); Hemoglobin 14.4 g/dl (14.0-18.0); Lymphocyte % 23.3 % (25-47); Mean Corpuscular HGB Conc 35 g/dl (31-36); Mean Corpuscular Hemoglobin 30 pg (27-31); Mean Corpuscular Volume 87 fL (80-94); Mean Platelet Volume 8.2 fL (7.4-10.4); Nucleated Red Blood Cells % 0; Platelet Count 161 10^3/ul (150-450); Red Blood Count 4.82 10^6/ul (4.00-5.40); Red Cell Distribution Width 13 % (10.5-15); White Blood Count 8.7 10^3/ul (3.5-10.8)
[2018-04-02 16:40] LABS: EGFR Non-African American 78.7 (>60)
[2018-04-02] MEDS ORDERED: Azithromycin TAB* 250 MG PO ONE (18:54)
[2018-04-02 19:17] VITALS: BP 119/67
== END 2018-04-02 19:16 | disposition home or self-care (01) ==
LOC: ED 15:32
DX: J18.8 Other pneumonia, unspecified organism (principal); R06.02 Shortness of breath; R47.81 Slurred speech; F17.210 Nicotine dependence, cigarettes, uncomplicated; R56.9 Unspecified convulsions
CPT/HCPCS: 36415; 71046; 80053; 83605; 83735; 85025; 93005; 99283; A9270-GY